=== PATIENT | female | born 1995 | race Caucasian/White ===

== ENCOUNTER 2020-12-30 16:36 | Outpatient (CLI) | payer BC, SELFPAY ==
[2020-12-30 17:02] VITALS: BP 136/63; PULSE 85; RESP 20; TEMP 36.6
[2020-12-30 17:30] VITALS: BP 136/63; PULSE 84
== END 2020-12-30 17:29 | disposition home or self-care (01) ==
LOC: ANHOBOP 16:45 → ANHOBPP 16:45
PROVIDERS: Visit Provider Obstetrics & Gynecology
DX: O42.90 Premature rupture of membranes, unspecified as to length of time between rupture and onset of labor, unspecified weeks of gestation (principal); Z3A.00 Weeks of gestation of pregnancy not specified
CPT/HCPCS: 59025; 84112; 99199

== ENCOUNTER 2021-01-06 16:24 | Outpatient (CLI) | payer BC, SELFPAY ==
--- NOTE | ~2021-01-06 | US_ITS ---
EXAMINATION: US OB limited DATE: 01/06/2021 17:36 INDICATION: Leaking fluids. Assess amniotic fluid index during second trimester of . TECHNIQUE: Real-time ultrasound of the pelvis was performed. The interpreting radiologist was not pre sent for the study. COMPARISON: None. FINDINGS: There is a single living fetus in variable presentation. The placenta is posterior and low-lying wit h caudal margin 2.5 cm from the internal cervical os. There is a 10 x 7 mm hypoechoic likely subchori onic hematoma along the inferior margin of the placenta. Normal cervical length of 3.5 cm. Anterior t o the cervix at the caudal aspect of the gestational sac is a small anechoic region from th e remainder of the amniotic fluid by a thin linear echogenic membrane. heart rate is 153 beats p er minute (bpm). The amniotic fluid index is 14.4 cm, which is normal (5th%-95%: 9.5-21.4 cm at 21 we eks estimated gestational age). IMPRESSION: 1. Single living fetus in variable presentation with heart rate of 153 bpm. 2. Normal amniotic fluid index of 14.4 cm. 3. Small subchorionic hematoma along the inferior margin of the posterior placenta. Additional small anechoic region separate from the remainder the amniotic fluid collection by a thin linear echogenic membrane could represent additional subchorionic hematoma with differential also including chorioamni onic separation which would be atypical at 21 weeks estimated gestational age, amniotic band or poten tially an intrauterine membrane in the appropriate clinical setting. Correlate with any prior outside imaging. Reviewed, dictated and finalized at location A. R ENGINEER IMPRESSION: 1. Single living fetus in variable presentation with heart rate of 153 b pm. 2. Normal amniotic fluid index of 14.4 cm. 3. Small subchorionic hematoma along the inferior margin of the posterior place nta. Additional small anechoic region separate from the remainder the amniotic fluid collection by a thin linear echogenic membrane could represent additional subchorionic hematoma with differential also including chorioamnionic separati on which would be atypical at 21 weeks estimated gestational age, amniotic band or potentially an intrauterine membrane in the appropriate clinical setting. C orrelate with any prior outside imaging.
[2021-01-06 16:55] VITALS: BP 120/60; PULSE 80
[2021-01-06 16:58] VITALS: BP 120/60; PULSE 80
[2021-01-06 17:00] VITALS: BP 120/60; PULSE 81; PULSE 97; RESP 20; TEMP 37.4
--- NOTE | 2021-01-06 18:03 | PC.NURSE ---
Dr. Simeon informed pt c/o leakage of fluid for the last week. Pt was evaluated here prior and ROM plus was negative. ROM plus negative again tonight, MEHRDAD 14.4 cm. Read the remainder of the U/S report to . FHT's 135 with 10 beat accels at 21 6/7 wks. OK to discharge to home. Instruct pt in pelvic rest and to call the office tomorrow. MD will review films from U/S and determine if pt needs to see MFM. Pt informed and verbalizes understanding.
== END 2021-01-06 18:11 | disposition home or self-care (01) ==
LOC: ANHOBOP 16:28 → ANHOBPP 16:28
PROVIDERS: Visit Provider Advanced Practice Midwife
DX: O42.90 Premature rupture of membranes, unspecified as to length of time between rupture and onset of labor, unspecified weeks of gestation (principal); Z3A.00 Weeks of gestation of pregnancy not specified
CPT/HCPCS: 76815; 84112; 99199

== ENCOUNTER 2021-03-12 08:26 | Observation (INO) | payer SELFPAY ==
[2021-03-12 08:48] VITALS: BP 122/63; PULSE 98
[2021-03-12 08:50] VITALS: BMI 37.6
[2021-03-12 09:00] VITALS: BP 109/64; PULSE 91
--- NOTE | 2021-03-12 09:01 | OBADM ---
This patient, Yamila Vickers, admitted to the OB room OB Post 116 for observation. Patient/family oriented to hospital policies and general routines including ID bracelet, bed and alarms, visiting hours, pain management, procedures, bathroom and other care routines, personal items, smoking policy, room service/diet, and visiting hours. Patient/Family are encouraged to report perceived risks to care and to ask questions if they do not understand what they are told or what they should do.
[2021-03-12 10:00] VITALS: BP 117/65; PULSE 93
[2021-03-12 10:49] LABS: Add Urine Microscopic? YES; Appearance Urine Cloudy (Clear); Bilirubin Urine Negative (Negative); Blood Urine 3+ (Negative); Color Urine Yellow (Yellow); Glucose Urine UA Negative (Negative); Ketones Urine Negative (Negative); Leukocyte Esterase Ur Negative LEU/UL (Negative); Mucus Urine Few /lpf; Nitrate Urine Negative (Negative); Protein Urine 1+ mg/dL (Negative); RBC Urine >75 /hpf (0-2); Specific Grav Ur 1.016 (1.001-1.035); Squamous Epithelial Cell Urine Many /hpf (Few); Urobilinogen Urine Negative mg/dL (<2.0)
[2021-03-12 11:00] VITALS: BP 119/59; PULSE 89
--- NOTE | 2021-03-26 21:36 | PM.OBTRLD ---
OB - Triage/Final Diagnosis Visit Information Comments/Additional reasons for admission: I have assessed the risk for this patient, Yamila Vickers, and determined that she would benefit from observation care. Evaluation Laboratory results: Laboratory Tests 03/12/21 08:53 Urine Color Yellow Urine Appearance Cloudy H Urine pH 6.0 Ur Specific [place] 1.016 Urine Protein 1+ H Urine Glucose (UA) Negative Urine Ketones Negative Ur Blood (Man) 3+ H Urine Nitrate Negative Urine Bilirubin Negative Urine Urobilinogen Negative Leukocyte Esterase Rfl Negative Urine RBC >75 H Urine WBC 4-6 H Ur Squamous Epith Cells Many H Urine Mucus Few H Final Diagnosis (1) False labor: Code(s): O47.9 - False labor, unspecified Status: Acute
== END 2021-03-12 11:20 | disposition home or self-care (01) ==
PROVIDERS: Admitting Provider Obstetrics & Gynecology; Visit Provider Obstetrics & Gynecology
DX: O47.03 False labor before 37 completed weeks of gestation, third trimester (principal); Z3A.32 32 weeks gestation of pregnancy
CPT/HCPCS: 81001; G0378; G0379

== ENCOUNTER 2021-05-10 15:53 | Inpatient (IN) | payer BC, SELFPAY ==
[2021-05-10] VITALS (52 sets, daily range): BP systolic 86–138; BP diastolic 55–97; PULSE 18–135; RESP 18; TEMP 36.7–37.2; O2SAT 96–100; BMI 39.2
--- OUTSIDE RECORDS SUMMARY | 2021-05-10 16:00 | XMS_ITS | Encounter Summary ---
:1995 Author Care Team Providers Name Role Phone [facility] Primary Care Provider [phone] Reason for Visit OB visit 37w6d Assessment and Plan 1. Routine care Discussion Note: None recorded.Patient educational handouts: No information available. Plan of Care Reminders Provider Appointments None ? ? recorded. Lab None ? ? recorded. Referral None ? ? recorded. Procedures None ? ? recorded. Surgeries None ? ? recorded. Imaging None ? ? recorded. Medications Name Start Date ? ? escitalopram 5 mg tablet ? TAKE 1 TABLET BY MOUTH EVERY DAY ? Medications Administered None recorded. Vitals Height Weight BMI Blood Pressure 5 ft 7 in 252 lbs 39.5 kg/m2 122/75 mm[Hg] Results Lab Results None recorded. Allergies Code Code System Name Reaction Severity Onset [id number] RxNorm Nickel ? ? ? Problems Name Status Onset Date Source ? 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 Vanishing Twin Syndrome Active ? ? Procedures Date Name Pe
--- OUTSIDE RECORDS SUMMARY | 2021-05-10 16:00 | XMS_ITS | Encounter Summary ---
:1995 Author Care Team Providers Name Role Phone [facility] Primary Care Provider [phone] Reason for Visit None recorded. Assessment and Plan 1. Polyhydramnios ? US, obstetric, limited Discussion Note: None recorded.Patient educational handouts: No information available. Plan of Care Reminders Provider Appointments None ? ? recorded. Lab None ? ? recorded. Referral None ? ? recorded. Procedures None ? ? recorded. Surgeries None ? ? recorded. Imaging US, [facility], Limited 04/20/2021 Medications Name Start Date ? ? escitalopram 5 mg tablet ? TAKE 1 TABLET BY MOUTH EVERY DAY ? Medications Administered None recorded. Vitals None recorded. Results Lab Results None recorded. Allergies Code Code System Name Reaction Severity Onset [id number] RxNorm Nickel ? ? ? Problems Name Status Onset Date Source ? 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 Vanishing Twin Syndrome Active ? ? Procedures Date Name Performed by ?
--- OUTSIDE RECORDS SUMMARY | 2021-05-10 16:00 | XMS_ITS | Encounter Summary ---
:1995 Author Care Team Providers Name Role Phone [facility] Primary Care Provider [phone] Reason for Visit OB visit 36w5d Assessment and Plan 1. Routine care Discussion [...] BMI Blood Pressure 5 ft 7 in 251 lbs 39.3 kg/m2 123/74 mm[Hg] Results Lab Results None recorded. Allergies Code Code System Name Reaction Severity Onset [id number] RxNorm Nickel ? ? ? Problems Name Status Onset Date Source ? 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 Vanishing Twin Syndrome Active ? ? Procedures Date Name
--- OUTSIDE RECORDS SUMMARY | 2021-05-10 16:00 | XMS_ITS ---
:1995 Author Care Team Providers Name Role Phone [facility] Primary Care Provider [phone] Allergies Code Code System Name Reaction Severity Status Onset [id number] RxNorm Nickel ? ? Active ? Medications Name Status Start Date Stop Date ? ? dextroamphetamine-amphetamine 15 mg tablet Completed ? 11/24/2020 TAKE 1 TABLET BY MOUTH EVERY NIGHT dextroamphetamine-amphetamine ER 20 mg 24hr capsule,extend relea se Completed ? 11/24/2020 TAKE 1 CAPSULE BY MOUTH ONCE DAILY IN THE MORNING escitalopram 10 mg tablet Completed ? 2020 TAKE 1 TABLET BY MOUTH EVERY DAY escitalopram 5 mg tablet Active ? Not millie ilable TAKE 1 TABLET BY MOUTH EVERY DAY nitrofurantoin monohydrate/macrocrystals 100 mg capsule Complete d ? 03/27/2021 TAKE 1 CAPSULE BY MOUTH EVERY 12 HOURS FOR 7 DAYS Active ? Not available 28 mg iron-800 mcg tablet Completed ? 07/28/2020 Zoloft 50 mg tablet Completed 10/03/2014 02/28/2018 take 1 tablet by oral route every day Problems Name Status Onset Date Source ? Screening for Malignant Neoplasm of Unknown 06/10/2011 History Cervix Specialized Medical Examination Unknown 06/10/2011 History Varicose Veins of Vulva Unknown 09/21/2011 History Depressive Disorder Unknown 09/06/2014 History Irregular Periods Unknown 09/06/2014 History Intermenstrual Bleeding - Irregular Unknown 09/06/2014 History Test Negative Unknown 09/06/2014 History Body Mass Index 25-29 - Overweight Unknown 02/28/2018 Hist
--- OUTSIDE RECORDS SUMMARY | 2021-05-10 16:00 | XMS_ITS | Encounter Summary ---
:1995 Author Care Team Providers Name Role Phone [facility] Primary Care Provider [phone] Reason for Visit OB visit Assessment and Plan 1. Routine care Discussion [...] BMI Blood Pressure 5 ft 7 in 241 lbs 37.7 kg/m2 102/67 mm[Hg] Results Lab Results None recorded. Allergies Code Code System Name Reaction Severity Onset [id number] RxNorm Nickel ? ? ? Problems Name Status Onset Date Source ? 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 Vanishing Twin Syndrome Active ? ? Procedures None recorded. Vaccine List None recorded. Social History Tob
--- OUTSIDE RECORDS SUMMARY | 2021-05-10 16:00 | XMS_ITS | Encounter Summary ---
:1995 Author Care Team Providers Name Role Phone [facility] Primary Care Provider [phone] Reason for Visit OB visit 35w5d / gbs today Assessment and Plan 1. Routine care Discussion [...] BMI Blood Pressure 5 ft 7 in 254 lbs 39.8 kg/m2 120/77 mm[Hg] Results Lab Results None recorded. Allergies Code Code System Name Reaction Severity Onset [id number] RxNorm Nickel ? ? ? Problems Name Status Onset Date Source ? 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 Vanishing Twin Syndrome Active ? ? Procedures Date Name
--- OUTSIDE RECORDS SUMMARY | 2021-05-10 16:00 | XMS_ITS | Encounter Summary ---
:1995 Author Care Team Providers Name Role Phone [facility] Primary Care Provider [phone] Reason for Visit OB visit 27W5D / Glucose today Assessment and Plan 1. Routine care [...] BMI Blood Pressure 5 ft 7 in 238 lbs 37.3 kg/m2 118/74 mm[Hg] Results Lab Results None recorded. Allergies Code Code System Name Reaction Severity Onset [id number] RxNorm Nickel ? ? ? Problems Name Status Onset Date Source ? 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 Vanishing Twin Syndrome Active ? ? Procedures None recorded. Vaccine List None r
--- OUTSIDE RECORDS SUMMARY | 2021-05-10 16:00 | XMS_ITS | Encounter Summary ---
:1995 Author Care Team Providers Name Role Phone [facility] Primary Care Provider [phone] Reason for Visit OB visit OB [id number] EDC 05/13/2021 LMP 07/20/2020 Assessment and Plan Assessment Note Patient is __39weeks . Disc ussed plan. 1. Routine care Discussion Note: None recorded.Patient [...] BMI Blood Pressure 5 ft 7 in 253 lbs 39.6 kg/m2 114/75 mm[Hg] Results Lab Results None recorded. Allergies Code Code System Name Reaction Severity Onset [id number] RxNorm Nickel ? ? ? Problems Name Status Onset Date Source ? Preg
--- OUTSIDE RECORDS SUMMARY | 2021-05-10 16:00 | XMS_ITS | Encounter Summary ---
:1995 Author Care Team Providers Name Role Phone [facility] Primary Care Provider [phone] Reason for Visit None recorded. Assessment and Plan 1. Disease of the respiratory sy stem complicating , childbirth and/or the puerperium ? US, obstetric, follow-up Discussion Note: None recorded.Patient educational handouts: No information available. Plan of Care Reminders Provider Appointments None ? ? recorded. Lab None ? ? recorded. Referral None ? ? recorded. Procedures None ? ? recorded. Surgeries None ? ? recorded. Imaging US, 04/13/2021 [facility], Follow-up Medications Name Start Date ? ? escitalopram 5 mg tablet ? TAKE 1 TABLET BY MOUTH EVERY DAY ? Medications Administered None recorded. Vitals None recorded. Results Lab Results None recorded. Allergies Code Code System Name Reaction Severity Onset [id number] RxNorm Nickel ? ? ? Problems Name Status Onset Date Source ? 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 Vanishing Twin Syndrome Active ? ? Proced
--- OUTSIDE RECORDS SUMMARY | 2021-05-10 16:00 | XMS_ITS | Encounter Summary ---
:1995 Author Care Team Providers Name Role Phone [facility] Primary Care Provider [phone] Reason for Visit OB visit 33W5D Assessment and Plan 1. Routine care Discussion [...] BMI Blood Pressure 5 ft 7 in 247 lbs 38.7 kg/m2 124/78 mm[Hg] Results Lab Results None recorded. Allergies Code Code System Name Reaction Severity Onset [id number] RxNorm Nickel ? ? ? Problems Name Status Onset Date Source ? 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 Vanishing Twin Syndrome Active ? ? Procedures Date Name
--- OUTSIDE RECORDS SUMMARY | 2021-05-10 16:00 | XMS_ITS | Encounter Summary ---
:1995 Author Care Team Providers Name Role Phone [facility] Primary Care Provider [phone] Reason for Visit None recorded. Assessment and Plan 1. Pre-existing maternal disease complicating ? US, obstetric, follow-up Discussion Note: None recorded.Patient educational handouts: No information available. Plan of Care Reminders Provider Appointments None ? ? recorded. Lab None ? ? recorded. Referral None ? ? recorded. Procedures None ? ? recorded. Surgeries None ? ? recorded. Imaging US, 03/18/2021 [facility], Follow-up Medications Name Start Date ? ? escitalopram 5 mg tablet ? TAKE 1 TABLET BY MOUTH EVERY DAY ? Medications Administered None recorded. Vitals None recorded. Results Lab Results None recorded. Allergies Code Code System Name Reaction Severity Onset [id number] RxNorm Nickel ? ? ? Problems Name Status Onset Date Source ? 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 Vanishing Twin Syndrome Active ? ? Procedures Date Name Performed by ?
--- NOTE | 2021-05-10 16:30 | LDADM ---
This patient, Yamila Vickers, was admitted to Labor/Delivery/Recovery 107 on 05/10/21 at 15:53. Plans for labor, pain management and were discussed with patient. Patient/family oriented to hospital policies and general routines including ID bracelet, bed and alarms, visiting hours, pain management, procedures, bathroom and other care routines, personal items, smoking policy, room service/diet and guest tray routines, infant security routines, and visiting hours. Patient/Family are encouraged to report perceived risks to care and to ask questions if they do not understand what they are told or what they should do. See OBIX for further documentation.
[2021-05-10] MEDS: LACTATED RINGERS 1,000 ML 125 ML IV CONT ×3 (16:57→23:18)
[2021-05-10] MEDS: AMPICILLIN 2 GM/NS 100 ML 2 GM/100 ML BAG IVPB (16:58)
[2021-05-10] MEDS: OXYTOCIN 30 UNITS/NS 500 ML 30 UNITS/500 ML BAG IV CONT (16:58)
[2021-05-10 16:59] LABS: Basophils Percent Auto 0.1 % (0.2-1.2); Eosinophils Absolute Auto 0.1 K/mm3 (0-0.3); Eosinophils Percent Auto 0.6 % (0-4.4); Hematocrit 35.6 % (37.0-47.0); Hemoglobin 11.8 g/dL (12.0-15.0); Lymphocytes Absolute Auto 1.51 K/mm3 (0.9-3.2); Mean Corpuscular HGB Conc 33.1 g/dl (32-36); Mean Corpuscular Hemoglobin 28.8 pg (26-34); Mean Corpuscular Volume 86.8 fl (80-100); Mean Platelet Volume 8.7 fl (7.4-10.4); Monocytes Absolute Auto 0.7 K/mm3 (0.1-0.6); Neutrophils Absolute Auto 7.7 K/mm3 (1.3-6.7); Neutrophils Percent Auto 76.3 % (45.5-73.1); Platelet Count Result 236 k/mm3 (150-375); Red Cell Distribution Width 13.3 % (11.5-14.5); White Blood Count 10.1 K/mm3 (4.5-10.0)
[2021-05-10] MEDS: AMPICILLIN 1 GM/NS 50 ML 1 GM/50 ML BAG IVPB (21:10)
--- NOTE | 2021-05-10 22:06 | PM.IMHP ---
H&P: HPI History of Present Illness Date/Time: 05/10/21 22:06 26 y/o @ 39w4d here for induction of labor. Chief Complaint: Induction of labor Review of Systems Review of Systems: All systems reviewed & are unremarkable except as noted in HPI and below Constitutional: Constitutional: Reports as per HPI and Reports no additional constitutional complaints Eyes: Eyes: Reports as per HPI ENT: Reports system reviewed and no additional complaints, except as documented Cardiovascular: Cardiovascular: Reports as per HPI Respiratory: Respiratory: Reports as per HPI Gastrointestinal: Gastrointestinal: Reports as per HPI Genitourinary: Genitourinary: Reports no additional female genitourinary complaints Musculoskeletal: Musculoskeletal: Reports no additional musculoskeletal complaints Integumentary/Breasts: Skin/Breast: Reports system reviewed and no additional complaints, except as docu Neurologic: Reports system reviewed and no additional complaints, except as documented Psychiatric: Psychiatric: Reports no additional psychiatric complaints Endocrine: Endocrine: Reports no additional endocrine complaints Hematologic/Lymphatic: Hematologic/Lymphatic: Reports no additional hematologic/lymphatic complaints Allergic/Immunologic: Allergic/Immunologic: Reports no additional allergic/immunologic complaints [facility] Family History Family History Father Diabetes mellitus Social History Social History Smoking status: Never smoker Substance use: never Spiritual care concerns: No Meds Home Medications and Allergies Home Medications Medication Instructions Recorded Confirmed Type Unisom (doxylamine) 1 tab-cap PO PRN PRN 12/30/20 05/10/21 History escitalopram oxalate 5 mg PO DAILY 12/30/20 05/10/21 History vit-ferrous sulfat-FA 1 tablet PO DAILY 12/30/20 05/10/21 History aspirin 81 mg PO DAILY 03/12/21 05/10/21 History Allergies Allergy/AdvReac Type Severity Reaction Status Date / Time nickel Allergy Intermediate Rash Verified 02/13/19 12:13 Vital Signs Vital Signs - 24 hr 05/10/21 17:04 05/10/21 17:07 05/10/21 17:31 Temperature 98.9 F Pulse Rate 113 H 100 Respiratory Rate Blood Pressure 125/81 119/69 05/10/21 18:01 05/10/21 18:31 05/10/21 18:59 Temperature 99 F Pulse Rate 94 96 Respiratory Rate 18 Blood Pressure 113/77 115/97 H 05/10/21 19:01 05/10/21 19:32 05/10/21 20:01 Temperature Pulse Rate 91 102 H 99 Respiratory Rate Blood Pressure 117/78 125/82 128/77 05/10/21 20:31 05/10/21 21:01 05/10/21 21:31 Temperature Pulse Rate 99 97 95 Respiratory Rate Blood Pressure 104/66 118/75 130/73 05/10/21 21:48 05/10/21 22:01 Temperature 98.2 F Pulse Rate 18 L 97 Respiratory Rate Blood Pressure 117/89 Exam Narrative: Abdomen gravid with regular contractions FHR category 1 Cervix 2-3/50/-2 AROM moderate amount of clear odorless fluid Const: General: cooperative and healthy appearing Orientation/consciousness: oriented to person, oriented to place, oriented to time and patient oriented x3 Limitations: no limitations HENMT: Head: normal to inspection Ears: hearing grossly normal bilaterally General nose exam: Normal external nose present Face and sinus: normal facial exam Mouth: Yes Normal oral and palatal mucosa present Teeth and gingiva: dentition normal Throat: posterior oropharynx normal Eyes: General: appearance normal, both eyes and all related structures Neck: Neck: normal visual inspection Thyroid: thyroid normal Chest: Chest palpation & inspection: normal inspection of the chest Resp: Effort & Inspection: normal respiratory effort Auscultation: clear to auscultation bilaterally Cardio: Rate: regular rate Rhythm: regular rhythm GI: Inspection: normal to inspection : General: Yes bimanual renal
--- NOTE | 2021-05-10 22:16 | WPDANESEPP ---
Anes - Eval Pre Procedure Procedure: labor epidural Date/Time: 05/10/21 22:16 Surgeon: naif Pre Op Diagnosis: Induction of Labor Patient Data Age: 26 Gender: F Height: 1.7 m Weight: 113.5 kg Last Vital Signs Temp 36.8 C 05/10/21 21:48 Pulse 97 05/10/21 22:01 Resp 18 05/10/21 18:59 BP 117/89 05/10/21 22:01 Allergies Allergy/AdvReac Type Severity Reaction Status Date / Time nickel Allergy Intermediate Rash Verified 02/13/19 12:13 Home Medications Medication Instructions Recorded Confirmed Type Unisom (doxylamine) 1 tab-cap PO PRN PRN 12/30/20 05/10/21 History escitalopram oxalate 5 mg PO DAILY 12/30/20 05/10/21 History vit-ferrous sulfat-FA 1 tablet PO DAILY 12/30/20 05/10/21 History aspirin 81 mg PO DAILY 03/12/21 05/10/21 History Laboratory Tests 05/10/21 05/10/21 05/10/21 16:25 16:25 16:25 WBC 10.1 K/mm3 H K/mm3 (4.5-10.0) RBC 4.10 M/mm3 L M/mm3 (4.2-5.4) Hgb 11.8 g/dL L g/dL (12.0-15.0) Hct 35.6 % L % (37.0-47.0) MCV 86.8 fl fl (80-100) MCH 28.8 pg pg (26-34) MCHC 33.1 g/dl g/dl (32-36) RDW 13.3 % % (11.5-14.5) Plt Count 236 k/mm3 k/mm3 (150-375) MPV 8.7 fl fl (7.4-10.4) Immature Gran % (Auto) 1.0 % H % (0-0.5) Neut % (Auto) 76.3 % H % (45.5-73.1) Lymph % (Auto) 15.0 % L % (18.3-44.2) [place] % (Auto) 7.0 % % (2.6-8.5) Eos % (Auto) 0.6 % % (0-4.4) Baso % (Auto) 0.1 % L % (0.2-1.2) Lymph # (Auto) 1.51 K/mm3 K/mm3 (0.9-3.2) [place] # (Auto) 0.7 K/mm3 H K/mm3 (0.1-0.6) Eos # (Auto) 0.1 K/mm3 K/mm3 (0-0.3) Baso # (Auto) 0.0 K/mm3 K/mm3 (0.0-0.1) Abs Immat Gran (auto) 0.10 K/mm3 H K/mm3 (0.00-0.031) Absolute Neuts (auto) 7.7 K/mm3 H K/mm3 (1.3-6.7) Absolute Nucleated RBC 0.0 K/mm3 K/mm3 (0.0-0.012) Nucleated RBC % 0.0 % % (0.0-0.2) RPR Pending Blood Type O Positive Antibody Screen Negative Patient hx anesthesia problems: none Family hx anesthesia problems: none Results Review: All pre-operative results and documents have been reviewed as part of the pre-operative evaluation. [facility] Family History Family History Father Diabetes mellitus Social History Social History Smoking status: Never smoker Substance use: never Spiritual care concerns: No Exam Day of Procedure 05/10/21 22:16
[2021-05-11] VITALS (50 sets, daily range): BP systolic 78–143; BP diastolic 46–109; PULSE 82–173; RESP 18; TEMP 36.1–37; O2SAT 97–100
[2021-05-11] MEDS: ONDANSETRON INJ 4 MG/2 ML VIAL IV PUSH ×2 (00:26→06:15)
[2021-05-11] MEDS: AMPICILLIN 1 GM/NS 50 ML 1 GM/50 ML BAG IVPB ×2 (00:29→04:18)
[2021-05-11] MEDS: FAMOTIDINE 20 MG/2 ML VIAL IV PUSH (02:30)
--- NOTE | 2021-05-11 06:01 | PM.OBPRVD ---
OB - Delivery Note Procedure Delivery date: 05/11/21 Induction method: Per Pitocin Protocol Delivery monitor: External FHT and External Uterine Route of delivery: Episiotomy description: None Laceration Description: Perineal - 1st Degree Quantitative Blood Loss (ml): 207 Anesthesia type: Epidural Narrative: Mother and baby in stable condition. Cord gasses collected and handed off to staff. Baby Date of : 05/11/21 Time of : 05:27 Weeks of gestation at delivery: 39 Weight (pounds): 8 Weight (ounces): 13 presentation: vertex position: Right Occiput Anterior Placenta delivery description: Spontaneous score one minute: 9 score five minutes: 9
[2021-05-11] MEDS: OXYTOCIN 30 UNITS/NS 500 ML 30 UNITS/500 ML BAG 125 UNITS IV CONT (06:15)
[2021-05-11] MEDS: IBUPROFEN 600 MG TABLET PO ×3 (06:50→21:41)
[2021-05-11] MEDS: BENZOCAINE 20% AER SPR (*SP) 56 GM CAN 1 SPRAY TOPICAL (07:52)
[2021-05-11] MEDS: WITCH HAZEL 40 PADS 1 PAD TOPICAL (07:52)
[2021-05-11] MEDS: HYDROcodone/acetaminophen (*CRX) 5-325 MG TABLET 1 TAB PO (07:52)
--- NOTE | 2021-05-11 08:40 | PC.NURSE ---
Patient transferred to post room #[id number] via wheelchair. Support person present. Oriented to unit, room, information board, rooming in, admission packet and security measures. Patient verbalizes understanding.
--- NOTE | 2021-05-11 11:46 | PC.NURSE ---
[id number] Introductions made and consulted with patient to assess needs related to . Mother led conversation with her experience with feeding baby so far. Mother works well with her infant. Reviewed good handwashing when working with , breast, nipples and how to protect the nipples with a deep latch. Encouraged understanding the benefits of skin to skin, responding to feeding cues, frequencies of feeding 8-12 times in 24 hours (approximately 2-3 hours), duration of feedings, milk production, intake/output feeding sheet and signs of adequate intake. Discussed stimulating with skin to skin, hand expressing colostrum, touch and talking to infant to encourage eating at the breast. Reviewed positioning and alignment, supporting breast, off-centered (asymmetrical latch) and leading with the chin with big open wide gape. latched optimally to the left breast in football position. Education given to mother of how to visualize suck/swallow ratios and drinking at the breast. Infant was able to maintain latch without discomfort to mother. Nipple care, comfort and healing with warm, wet washcloth to rinse breast and leave to air-dry and have clean hands when touching the nipple/breast. Mother denies any discomfort after . The center of the nipple is blanched after detached without misshaping. Discussed further assessment after the next feeding. Resources used to facilitate learning were used from the visual handout/ tool/mom and baby guide. Mother voiced understanding responding to feeding cues, may need to stimulating infant approximately 2-3 hours from the start of the last feeding, calling for assistance if the infant does not latch or there discomfort . Reported to primary RN.
--- NOTE | 2021-05-11 11:50 | PC.NURSE ---
[id number] Infant latched optimally to the right breast in football position. Education given to mother of how to visualize suck/swallow ratios and drinking at the breast. Infant was able to maintain latch without discomfort to mother. Nipple care reviewed with latch and positioning. Resources used to facilitate learning were used from the mom and baby guide. Mother voiced understanding responding to feeding cues, may need to stimulating approximately 2-3 hours from the start of the last feeding, calling for assistance if the does not latch or there discomfort . Reported to primary RN.
[2021-05-11] MEDS: MULTIVIT/MIN/PREN/FOL AC/IRON TABLET 1 TAB PO (12:19)
--- NOTE | 2021-05-11 14:26 | PC.NURSE ---
1235 - Infant is sleepy and reluctant to breastfeed. Mother is holding infant skin to skin. RN will check back. 1310 -Infant latched effectively with appropriated suck/swallow ratios, audible swallowing heard and able to maintain latch with no discomfort to mother to the right breast in football position. Reported to primary RN.
--- NOTE | 2021-05-11 15:43 | PC.NURSE ---
[id number] Consulted with patient to assess needs related to . Mother is working well with infant but is having difficulty getting infant awake for . Encouraged undressing the for the benefits of skin to skin, responding to feeding cues, frequencies of feeding 8-12 times in 24 hours (approximately 2-3 hours), duration of feedings, milk production, intake/output feeding sheet and signs of adequate intake. Discussed stimulating infant with skin to skin, hand expressing colostrum, touch and talking to to encourage eating at the breast. Reviewed positioning and alignment, supporting breast, off-centered (asymmetrical latch) and leading with the chin with big open wide gape. Infant latched optimally to the right breast in football position. Education given to mother of how to visualize suck/swallow ratios and drinking at the breast. was able to maintain latch without discomfort to mother. Nipple care reviewed with optimal latching. Infant detached after 12 min and nipple wasn't misshaped. Mother placed infant skin to skin. Mother voiced understanding responding to feeding cues, may need to stimulating infant approximately 2-3 hours from the start of the last feeding, calling for assistance if the infant does not latch or there discomfort . Reported to primary RN.
[2021-05-11] MEDS: ACETAMINOPHEN 325 MG TABLET 650 MG PO (17:03)
[2021-05-11 17:58] LABS: Rapid Plasma Reagin Non-Reactive (NonReactive)
[2021-05-12] MEDS: ACETAMINOPHEN 325 MG TABLET 650 MG PO ×2 (00:01→08:52)
[2021-05-12 00:08] VITALS: BP 135/70; PULSE 94; RESP 18; TEMP 35.9; O2SAT 99
[2021-05-12] MEDS: IBUPROFEN 600 MG TABLET PO (04:36)
[2021-05-12 04:48] VITALS: BP 144/80; PULSE 97; RESP 18; TEMP 36.2; O2SAT 98
[2021-05-12 05:24] LABS: Hematocrit 33.5 % (37.0-47.0); Hemoglobin 11.2 g/dL (12.0-15.0)
--- NOTE | 2021-05-12 07:14 | PM.OBPNVD ---
OB - PN: Subj Subjective Date/time seen: 05/12/21 07:14 Patient comments: no complaints and pain well controlled baby status: doing well [place] feeding status: breast and bottle feeding OB - PN: Obj Data Labs CBC & Chem 7: 05/12/21 04:37 Labs: Laboratory Results - last 24 hr 05/10/21 05/12/21 16:25 04:37 Hgb 11.2 L Hct 33.5 L RPR Non-reactive OB - PN A/P Assessment and Plan (1) , delivered: Code(s): O80 - Encounter for full-term uncomplicated delivery Status: Acute Plan day: 1 Plan: routine care Time Spent With Patient Time: Total time spent is greater than 50% in coordination of care (as documented) at patient's floor/unit and/or counseling patient: Time with patient: less than 15 minutes Exam Narrative: NAD abdomen soft, nontender, fundus firm below the umbilicus Extremities nontender, 1+ edema
--- NOTE | 2021-05-12 07:16 | PM.OBDSVD ---
DS: Admitting Diagnosis Discharge Date 05/12/21 Admitting Diagnosis term IOL DS: Discharge Diagnosis Discharge Diagnosis (1) , delivered: Code(s): O80 - Encounter for full-term uncomplicated delivery Status: Acute OB - DS: Summary Hospital Course Hospital Course: Yamila had an uncomplicated induction of labor and course. She was DCed home on PPD1 in stable condition. OB Procedures : Ultrasound OB Procedures Intrapartum: Spontaneous Vag Delivery OB Procedures: : None Peripartum Data Infant Delivery Method: Natural Vaginal complications: none Status at Discharge Functional status at discharge: independent ambulation Time Spent with Patient Time attestation: Total time spent providing and/or coordinating discharge services: DS: Data Data Completed and Pending Pending studies at discharge: Pending at discharge 05/11/21 06:05 Surgical [PTH] Routine Labs on day of discharge: Labs from last 24 hours 05/12/21 05/10/21 04:37 16:25 Hgb 11.2 L Hct 33.5 L RPR Non-reactive Discharge Plan Discharge Attending physician on discharge: Merlyn Simeon Discharging Clinician: Merlyn Simeon Anticipated Discharge Date/Time: 05/12/21 07:15 Patient Disposition: Home, Self-Care Activity: pelvic rest Diet: regular Patient Instructions: Antibiotic Form Stand Alone Forms: General Discharge Information Follow-up/Referrals: Emma Avitia MD [Physician] - 4 Weeks Discharge Medications: Continued vit-ferrous sulfat-FA 27 mg iron- 0.8 mg Tablet 1 tablet PO DAILY RF: 0 escitalopram oxalate 10 mg tablet 5 mg PO DAILY RF: 0 Discontinued Unisom (doxylamine) 1 tab-cap PO PRN PRN (Reason: Sleep) RF: 0 aspirin 81 mg Tablet 81 mg PO DAILY RF: 0 Date of admission: 05/10/21 15:53 Primary Care Provider: Kina Bentley Admitting Provider: Emma Avitia Attending physician on admission: Emma Avitia Condition: Stable
[2021-05-12 07:50] VITALS: BP 115/58; PULSE 91; RESP 16; TEMP 36.3; O2SAT 98
[2021-05-12] MEDS: DOCUSATE SODIUM 100 MG CAPSULE PO (08:52)
[2021-05-12] MEDS: MULTIVIT/MIN/PREN/FOL AC/IRON TABLET 1 TAB PO (08:52)
--- NOTE | 2021-05-12 12:39 | PC.NURSE ---
[id number] Mother led the conversation with regards to her experience feeding her baby. Reminded parents to use good handwashing to prevent infection. Infant has had appropriate feedings in the past 24 hours and meets the outcomes for weight, output and jaundice. Mother states she feels confident to continue effectively her at home and what led to the panic bottle feeding last night. Reviewed production of human milk, transition of milk, signs of adequate intake and engorgement prevention/relief and when to call the care provider using the mom and baby guide. Reviewed medications mother is taking with information provided by [facility], community resources and outpatient services as listed in the mom and baby guide/[facility] website. Reinforced watching for feeding cues with responsive feeding and how to stimulate infant to initiate feeding three hours from the start of the last feeding. Mother voiced understanding of information shared. Reported to primary RN.
[2021-05-13 08:44] VITALS: BP 114/64; PULSE 94; RESP 20; TEMP 36.8; O2SAT 99
== END 2021-05-12 10:20 | disposition home or self-care (01) | DRG 807 ==
LOC: ANHOB2 05-12 09:03 → ANHLDR 05-13 09:58 → ANHOB2 05-13 09:58
PROVIDERS: Admitting Provider Obstetrics & Gynecology; PCP Advanced Practice Midwife; Visit Provider Obstetrics & Gynecology
DX: O99.824 Streptococcus B carrier state complicating childbirth (principal); Z37.0 Single live birth; Z3A.39 39 weeks gestation of pregnancy; O70.0 First degree perineal laceration during delivery
CPT/HCPCS: 36415; 85014; 85018; 85025; 86592; 86850; 86900; 86901; 88307; A9270; J0290; J2405; J2590; J2795; J7120

== ENCOUNTER 2023-12-23 08:40 | Outpatient (CLI) | payer BC, SELFPAY ==
[2023-12-23 09:45] LABS: Beta HCG Quantitative 45.99 mIU/ML
== END 2023-12-23 08:41 | disposition home or self-care (01) ==
PROVIDERS: PCP Nurse Practitioner Family; Visit Provider Advanced Practice Midwife
DX: N91.2 Amenorrhea, unspecified (principal)
CPT/HCPCS: 36415; 84702

== ENCOUNTER 2024-01-04 15:46 | Outpatient (CLI) | payer BC, SELFPAY ==
--- NOTE | ~2024-01-04 | US_ITS ---
EXAMINATION: US OB <=14 wk fetus w TV DATE: 01/04/2024 15:07 INDICATION: Spotting. . Threatened . TECHNIQUE: Real-time transabdominal and transvaginal pelvic ultrasound was performed. COMPARISON: None. FINDINGS: TRANSABDOMINAL ULTRASOUND: The uterus measures 10.9 x 5.0 x 5.8 cm. TRANSVAGINAL ULTRASOUND: There is a 3 mm cyst in the endometrial complex with intradecidual sign. No yolk sac or pole is visible. The ovaries are not visualized. There is no free fluid in the pelv is. IMPRESSION: 1. 3 mm cyst in the endometrial complex that may be a gestational sac. Spontaneous and ecto pic are not excluded. Serial beta-hCGs are recommended. Reviewed, dictated and finalized at location A. [facility]OR IMPRESSION: 1. 3 mm cyst in the endometrial complex that may be a gestational sac. Spontan eous and ectopic are not excluded. Serial beta-hCGs are astrid mmended.
[2024-01-04 16:55] LABS: Beta HCG Quantitative 235.74 mIU/ML
== END 2024-01-04 15:47 | disposition home or self-care (01) ==
LOC: ANHIMG 15:47
PROVIDERS: PCP Nurse Practitioner Family; Visit Provider Advanced Practice Midwife
DX: O20.0 Threatened abortion (principal); Z3A.00 Weeks of gestation of pregnancy not specified
CPT/HCPCS: 36415; 76801; 76817; 84702

== ENCOUNTER 2024-05-10 15:27 | Outpatient (CLI) | payer BC, SELFPAY ==
--- NOTE | ~2024-05-10 | US_ITS ---
US pelvic complete w TV Ordering provider: INGRID Obrien History: . R10.31 - Right lower quadrant pain . Comparison: None. Technique: Transabdominal and endovaginal ultrasound of the pelvis (Doppler ultrasound interrogation techniques used as needed for this exam.) FINDINGS: CERVIX: Nabothian cyst measuring 0.4 x 0.3 x 0.4 cm. UTERUS: Measures 9.8x 4.3x 5 cm in length which is within normal limits and is anteverted. Hypoechoi c area on the right side measuring 1.1 x 1 x 1.2 cm most likely fibroid. ENDOMETRIUM: Normal in thickness measuring 9.3 mm. No endometrial masses, cysts or fluid. CUL DE SAC: No free fluid. RIGHT OVARY: Not visualized. LEFT OVARY: Normal in size measuring 2.5x 2.1x 3.1 Normal echotexture. Doppler vascular flow present. Simple cyst is seen measuring 1.8 x 1.1 x 1.9 cm. ADNEXA: Normal. No mass. IMPRESSION: Fibroid uterus, simple left ovarian cyst, nabothian cysts in the cervix. Otherwise, normal pelvic ult rasound. Reviewed, dictated and finalized at location A. IMPRESSION: Fibroid uterus, simple left ovarian cyst, nabothian cysts in the cervix. Otherw ise, normal pelvic ultrasound.
--- OUTSIDE RECORDS SUMMARY | 2024-05-10 15:42 | XMS_ITS | Clinical Summary ---
Author Organization [facility] Address [address] [place] [address] Care Team Providers Care Centrifugal Supervisor Name Role Phone Tang Mariscal MD Primary Care Provider [phone] Allergies No known active allergies Medications Doxylamine Succinate, Sleep, (UNISOM OR) Active amphetamine-dextr oamphetamine XR (ADDERALL XR) 20 MG 24 hr capsule 30 mg. 07/07/2022 Ac tive CLOTRIMAZOLE EX Acti ve Social History Tobacco Use Types Packs/Day Years Used Date Smoking Tobacco: Former Cigarettes Smokeless Tobacco: Never Tobacco Cessation:Counseling Given: Not Answered Alcohol Use Standard Drinks/Week Comments Never 0 (1 standard drink = 0.6 oz pur e alcohol) Comments No Sex and Gender Information Value Date Recorded Sex Assigned at Not on file Legal Sex Female 6:42 PM CDT Gender Identity Not on file Sexual Orientation Not on file Last Filed Vital Signs Vital Sign Reading Time Taken Comments Blood Pressure 133/72 08/24/2022 7:00 PM CDT Pulse 88 08/24/2022 7:00 PM CDT Temperature 37.1 C (98.7 F) 08/24/2022 7:00 PM CDT Respiratory Rate 19 08/24/2022 7:00 PM CDT Oxygen Saturation 96% 08/24/2022 7:00 PM CDT Inhaled Oxygen Concentration - - Weight 99.8 kg (220 lb) 08/24/2022 1:24 PM CDT Height 170.2 cm (5' 7 ) 08/24/2022 1:24 PM CDT Body Mass Index 34.46 08/24/2022 1:24 PM CDT Plan of Treatment Health Maintenance Due Date Last Done Comments Annual Physical 04/27/1998 Hepatitis C 04/27/2013 DTaP, Tdap and Td Vaccines ( 1 - Tdap) 04/27/2014 Hepatitis B Vaccines (1 of 3 - 19+ 3-dose series) 04/27/2014 COVID-19 Vaccine ( - 2023-2 5 season) 2023 Influenza Adult (#1) 2023 Cervical Cancer Screening Pa p Smear (Age 21 to 29) Every 3 Years 06/30/2024 06/30/2021 Cervical Cancer Screening 06/30/2024 HPV Vaccines Aged Out No longer eligi ble based on patient's age to complete this topic Meningococcal B Vaccine Aged Out No l onger eligible based on patient's age to complete this topic Meningococcal Vaccine Aged Out No sayda larisa eligible based on patient's age to complete this topic Pneumococcal Vaccine: Pediat rics (0 to 5 Years) and At-Risk Patients (6 to 64 Years) Aged Out No longer eligi ble based on patient's age to complete this topic RSV Immunizations Under 20 Months Aged Out No longer eligible based on patient's age to complete this topic Insurance Care Teams Centrifugal Supervisor Relationship Specialty Start Date End Date Tang Mariscal MD [address] [place] [id number] PCP - General FAMILY PRACTICE 08/24/22
--- OUTSIDE RECORDS SUMMARY | 2024-05-10 15:42 | XMS_ITS | Data Portability ---
Author Organization [facility] Address [address] [place] [address] Care Team Providers Care Cereal Popper Name Role Phone [facility] Primary Care Provider Assessment No assessment recorded. Plan of Treatment Reminders Order Date Submit Date Provider Last Modified By Organization Details Last Modified Time Details Appointments None recorded. Lab test, urine 2023 024 [email or web address] 1 [facility] [address], [address], [place], [address], 4 10:29:43 beta-HCG, quantitativ e, serum or plasma 2023 024 [facility] (Lab), [address] [facility], [place], [address], 4 03:44:[address] referral 2023 024 [email or web address] Mavis Ahumada MD, [address] [place], [address], 4 10:55:41 Procedures None recorded. Surgeries None recorded. Imaging None recorded. Medication Orders nystatin 100,000 unit/gram topical ointment 2023 024 [email or web address] [facility] #[id number], [address], [place], [id number], 4 11:09:32 triamcinolo ne acetonide 0.1 % topical ointment 2023 024 [email or web address] [id number], [address], [place], [id number], 4 11:09:37 clobetasol 0.05 % topical ointment [address] [id number], [address], [place], [id number], 4 10:22:55 Patient TargetsNo targets recorded. Patient InstructionsNo instructions recorded. Reason for Referral Slot Floorman Referral for P ruritic rash Referring Physician: Florecita Owens, MEDICAL GENETICIST, Encounter Date: 07/26/2023 Results Created Date Observation Date Name Description Value Unit Range Abnormal Flag Note LastModifiedBy Organization Detail LastModifiedTime 07/08/19 24 07/08/2023 SURGI VICKY PATHO LOGY surgical pathology SEE RESULT S BELOW CASE REPOR T: Surgi vicky Patho logy Repor t Case: [id number] Autho brijesh worthington Provi celina: Eduin Yu Colle cted: 07/07 1529 CASTING CHIPPER Order ing Locat ion: [place] [facility] Recei marek: 07/08 0300 Patho logis t: Jorge Alberto Hatfield MD Speci men: Peria nal, Peria nal pigme nted skin lesio n ----- ----- ----- ----- ----- ----- ----- ----- ----- ----- ----- ----- ----- ----- ----- ----- ----- ---- FINAL DIAGN OSIS: Skin, peria nal, biops y: -Charles gn skin with mild hyper kerat osis and acant hosis . -No evide nce of dyspl octavia or neopl asm. -PAS- D stain is negat mark for funga l organ isms. -Mult iple addit ional level s exami chuy. Elect mayco tan d by Jorge Alberto Hatfield MD on 2023 at 11:55 AM ----- ----- ----- ----- ----- ----- ----- ----- ----- ----- ----- ----- ----- ----- ----- ----- ----- ---- CLINI VICKY INFOR MATIO N: Pigme nted skin lesio n MICRO SCOPI C DESCR IPTIO N: A micro scopi c exami natio n was perfo rmed. GROSS DESCR IPTIO N: A. Peria nal. The speci men is label ed with the joee nt's name, jimmy lindsay cs and anal BX . Recei marek in forma anita is a punch of white skin measu ring 0.[address] and is excis ed to a depth of 0.2 cm. The braxton n is inked black and the speci men is submi tted all in casse ttes A1. Gross ed by Nigel Lewis on Not Available [facility] (Lab) [address], [place], [address], 07/11/2023 12:59:52 07/26/19 24 07/26/2023 CULTU RE: AEROB IC/AN AEROB IC culture: aerobic/anae robic CANCEL LU Castro ered Not Available [facility] (Lab) [address], [place], [address], 07/27/2023 06:06:01 07/26/19 24 07/26/2023 CT/GC AND TRICH OMONA S VAGIN MASON (RRNA ), SWAB chlamydia trachomatis, PCR Negati ve negati ve Not Available [facility] (Lab) [address], [place], [address], 07/30/2023 16:44:40 07/26/19 24 07/26/2023 CT/GC AND TRICH OMONA S VAGIN MASON (RRNA ), SWAB neisseria gonorrhoeae, PCR Negati ve negati ve Not Available [facility] (Lab) [address] [place], [address], 07/30/2023 16:44:40 07/26/19 24 07/26/2023 CT/GC AND TRICH OMONA S VAGIN MASON (RRNA ), SWAB trichomonas vaginalis ribosomal RNA (rrna) Negati ve negati ve Not Available [facility] (Lab) [address] [facility], [place], [address], 07/30/2023 16:44:40 07/26/19 24 07/26/2023 CULTU RE: GENIT AL result report SEE RESULT S BELOW Test: Cultu re: Genit al Speci men Sourc e: Vagin a Speci men Type: Swab Speci men Date: 024 2:41 PM Resul t Date: 024 3:41 PM Resul t Statu s: Final resul t Resul ting Lab: [facility] [address] [facility] [address] Tel: CULTU RE ----- ----- ----- --- No Neiss eria gonor rhoea e isola jaqueline Heavy Growt h Inez l Vagin al Dexter STAIN ----- ----- ----- --- Alter ed vagin al dexter , indet ermin ate for bacte rial vagin osis Not Available [facility] (Lab) [address] [facility], [place], [address], 07/30/2023 16:44:40 12/05/19 24 12/05/2023 BHCG, QUANT ITATI VE B-HCG <0.2 mIU/m L This assay was perfo rmed using [employer] Corpo ratio n reage nts and test kits. Value s obtai chuy with other assay metho ds or kits canno t be used inter [facility] e[facility] . Refer ence Range s: Non-p regna nt, preme nopau terell women : 0.0-5 .3 mIU/m L Postm enopa usal women : 0.0-7 .0 mIU/m L Inez l Pregn brit: Gesta richi l Age bHCG Conc. - mIU/m L 3 Weeks 5.8 - 71.7 4 Weeks 9.5 - 750 5 Weeks 217-7 138 6 Weeks 158 - 31,79 5 7 Weeks 3,697 - 162,5 63 8 Weeks 32,06 5 - 149,5 71 9 Weeks 63,80 3 - 151,4 10 10 Weeks 46,50 9 - 186,9 77 12 Weeks 27,83 2 - 210,6 12 14 Weeks 13,95 0 - 62,53 0 15 Weeks 12,03 9 - 70,97 1 16 Weeks 9,040 - 56,45 1 17 Weeks 8,175 - 55,86 8 18 Weeks 8,099 - 58,17 6 Not Available [facility] (Lab) [address] [facility], [place], [address], 12/06/2023 05:08:19 12/09/19 24 12/09/2023 ANTIM ALBERT JACKSON (AMH) anti-mulleri an hormone (amh) 5.42 NG/mL Femal e Refer ence Range s 20-24 years : 1.22 - 11.70 ng/mL 25-29 years : 0.89 - 9.85 ng/mL 30-34 years : 0.58 - 8.13 ng/mL 35-39 years : 0.15 - 7.49 ng/mL 40-44 years : 0.03 - 5.47 ng/mL The follo wing resul ts were obtai chuy with the Ele[employer] ys assay . Resul ts from assay s of other manuf actur es canno t be used inter [facility]. Not Available [facility] (Lab) [address] [facility], [place], [address], 12/19/2023 14:39:03 12/09/19 24 12/09/2023 DHEA SULFA TE DHEA-sulfate 85 ug/dL Femal e Range s Age(y ) Range (ug/d L) 10-15 34-28 0 15-20 65-36 8 20-25 148-4 07 25-35 99-34 0 35-45 61-33 7 45-55 35-25 6 55-65 19-20 5 65-75 9-246 > 75 12-15 4 Not Available [facility] (Lab) [address] [facility], [place], [address], 12/19/2023 14:39:03 12/09/19 24 12/09/2023 ESTRA DIOL estradiol 91.4 pg/mL This assay was perfo rmed using [employer] Corpo ratio n reage nts and test kits. Value s obtai chuy with other assay metho ds or kits canno t be used inter [facility] . Femal e Estra diol Range s: Folli cular phase 12.4- 233 pg/mL Ovula tion phase 41.0- 398 pg/mL Lutea l phase 22.3- 341 pg/mL Postm enopa usal <5-13 8 pg/mL Healt hy Pregn ant Women 1st Trime ster 154-3 243 pg/mL 2nd Trime ster 1561- 10647 pg/mL 3rd Trime ster 8525- >3000 0 pg/mL Not Available [facility] (Lab) [address] [facility], [place], [address], 12/19/2023 14:39:04 12/09/19 24 12/09/2023 PROGE STERO NE progesterone 4.41 NG/mL This assay was perfo rmed using [employer] Corpo ratio n reage nts and test kits. Value s obtai chuy with other assay metho ds or kits canno t be used inter [facility] e[facility] . Femal e Proge stero ne Range s: Folli cular phase 0.06- 0.89 ng/mL Ovula tion phase 0.12- 12.00 ng/mL Lutea l phase 1.83- 23.90 ng/mL Postm enopa usal <0.05 -0.13 ng/mL Healt hy Pregn ant Women 1st Trime ster 11.0- 44.30 2nd Trime ster 25.40 -83.3 0 3rd Trime ster 58.70 -214. 00 Not Available [facility] (Lab) [address] [facility], [place], [address], 12/19/2023 14:39:04 12/09/19 24 12/09/2023 PROLA CTIN prolactin, total 13.10 NG/mL 4.79-2 3.30 This assay was perfo rmed using [employer] Corpo ratio n reage nts and test kits. Value s obtai chuy with other assay metho ds or kits canno t be used inter [facility] . Not Available [facility] (Lab) [address] [facility], [place], [address], 12/19/2023 14:39:04 12/09/19 24 12/09/2023 LH (LUTE NIZIN G HORMO NE) LH 14.2 mIU/m L This assay was perfo rmed using [employer] Corpo ratio n reage nts and test kits. Value s obtai chuy with other assay metho ds or kits canno t be used inter [facility] . Femal es Mid-F ollic ular: 2.4-1 2.6 mIU/m L Mid-C ycle: 14.0- 95.6 mIU/m L Mid-L uteal : 1.0-1 1.4 mIU/m L Postm enopa use: 7.7-5 8.5 mIU/m L Not Available [facility] (Lab) [address] [facility], [place], [address], 12/19/2023 14:39:05 12/09/19 24 12/09/2023 FSH FSH 2.4 mIU/m L This assay was perfo rmed using [employer] Corpo ratio n reage nts and test kits. Value s obtai chuy with other assay metho ds or kits canno t be used inter [facility] . Femal es Folli cular : 3.5-1 2.5 mIU/m L Ovula tion: 4.7-2 1.5 mIU/m L Lutea l: 1.7-7 .7 mIU/m L Postm enopa use: 25.8- 134.8 mIU/m L Not Available [facility] (Lab) [address] [facility], [place], [address], 12/19/2023 14:39:05 12/09/19 24 12/09/2023 HUMAN SEX HORMO NE RJ NG GLOBU ANITA sex hormone binding globulin 40.2 nmole s/L 18.2-1 35.5 Not Available [facility] (Lab) [address] [place], [address], 12/19/2023 14:39:05 12/09/19 24 12/09/2023 TSH, REFLE X FREE T4 TSH 2.60 uIU/m L 0.30-5 .33 Not Available [facility] (Lab) [address] [place], [address], 12/19/2023 14:39:06 12/09/19 24 12/09/2023 HEMOG LOBIN A1C hemoglobin A1C 5.5 % 0-5.6 The Ameri can Diabe maryuri Assoc iatio n recom mends that a prima ry goal of thera py ramos velasquez be a HBA1C of < 7% and that physi cians darionul d reeva luate the treat ment regim en in patie nts with HBA1C value s consi stent ly > 8%. <5.7% Inez l 5.7 - 6.4% Incre ased risk for diabe maryuri >=6.5 % Diagn ostic of diabe maryuri <7.0% Goal of thera py >8.0% Actio n sugge sted Not Available [facility] (Lab) [address] [facility], [place], [address], 12/19/2023 14:39:06 12/09/19 24 12/09/2023 17-OH PROGE STERO NE 17-hydroxypr ogesterone, lc/MS/MS 123 NG/dL Adult Femal e Refer ence Range s for 17-Hy droxy proge stero ne: Pre-M enopa usal Mid Folli cular : 23-10 2 ng/dL Pre-M enopa usal Surge : 67-34 9 ng/dL Pre-M enopa usal Mid Lutea l: 139-4 31 ng/dL Postm enopa usal Phase : < or = 45 ng/dL Pregn brit: First Trime ster: 78-45 7 ng/dL Secon d Trime ster: 90-35 7 ng/dL Third Trime ster: 144-5 78 ng/dL This test was devel oped and its sha tical perfo rmanc e castro cteri stics have been deter mined by [employer]. It has not been clear ed or appro marek by FDA. This assay has been valid ated pursu ant to the CLIA regul ation s and is used for clini vicky purpo ses. Perfo rming Organ izati on Maryamr hiren n: Site ID: EZ Name: [employer] [facility]/Talon germain [facility] , Addre ss: [id number] [address] [facility] [place] [address] Direc tor: Mirna spencer MD,Ph D,TAYLER Not Available [facility] (Lab) [address] [facility], [place], [address], 12/19/2023 14:39:06 12/09/19 24 12/09/2023 TESTO STERO NE, FREE( DIALY SIS) AND TOTAL (LC/M S/MS) testosterone , total 56 NG/dL 2-45 high For addit ional infonora flores e refer to http: //[facility]isa valentine.que stdia gnost ics.c om/fa q/ Total Testo stero neLCM SMSFA Q165 (This link is being provi ded for infor matroman nal/ educa richi l purpo ses only. ) This test was devel oped and its sha tical perfo rmanc e castro cteri stics have been deter mined by [facility] PARUL Levine. It has not been clear ed or appro marek by the U.S. Food and Drug Admin istra tion. This assay has been valid ated pursu ant to the CLIA regul ation s and is used for clini vicky purpo ses. Not Available [facility] (Lab) [address] , [place], [address], 12/19/2023 14:39:06 12/09/19 24 12/09/2023 TESTO STERO NE, FREE( DIALY SIS) AND TOTAL (LC/M S/MS) testosterone , free 5.6 pg/mL 0.1-6. 4 This test was devel oped and its sha tical perfo rmanc e castro cteri stics have been deter mined by [employer] [facility] Aneudy huerta [facility] you[place]ifLog[place], [place]. It has not been clear ed or appro marek by the U.S. Food and Drug Admin istra tion. This assay has been valid ated pursu ant to the CLIA regul ation s and is used for clini vicky purpo ses. Perfo rming Organ izati on Infor sonyaio n: Site ID: AMD Name: [facility] ostgorge troncoso Addre ss: [id number] [employer] [place], [place] Direc tor: Rashawn Gallardo MD PhD Not Available [facility] (Lab) [address] , [place], [address], 12/19/2023 14:39:06 12/09/19 24 12/09/2023 CORTI KATE, FREE AND TOTAL , LC/MS /MS cortisol, total 6.0 mcg/d L Adult Refer ence Range s for Corti kate, Total : Males and Femal es 8-10 AM 4.6-2 0.6 mcg/d L 4-6 PM 1.8-1 3.6 mcg/d L Corti kate Respo nse to ACTH Adult Males and Femal es Peak >20.0 mcg/d L Peak >16.0 mcg/d L after IM injec tion Not Available [facility] (Lab) [address] , [place], [address], 12/19/2023 14:39:07 12/09/19 24 12/09/2023 CORTI KATE, FREE AND TOTAL , LC/MS /MS cortisol, free 0.28 mcg/d L Adult Refer ence Range s for Corti kate, MS, Free: 8:00 - 10:00 AM 0.07- 0.93 mcg/d L 4:00 - 6:00 PM 0.04- 0.45 mcg/d L 10:00 - 11:00 PM 0.04- 0.35 mcg/d L This test was devel oped and its sha tical perfo rmanc e castro cteri stics have been deter mined by [employer]. It has not been clear ed or appro marek by FDA. This assay has been valid ated pursu ant to the CLIA regul ation s and is used for clini vicky purpo ses. Perfo rming Organ izati on Infor matio n: Site ID: EZ Name: [facility] [facility]/Talon [facility] , Addre ss: [id number] [address] [facility] [place] [address] Direc tor: Mrina spencer MD,Ph D,TAYLER Not Available [facility] (Lab) [address] [facility], [place], [address], 12/19/2023 14:39:07 12/21/19 24 12/21/2023 BHCG, QUANT ITATI VE B-HCG 23.5 mIU/m L This assay was perfo rmed using [employer] Corpo ratio n reage nts and test kits. Value s obtai chuy with other assay metho ds or kits canno t be used inter [facility] . Refer ence Range s: Non-p regna nt, preme nopau terell women : 0.0-5 .3 mIU/m L Postm enopa usal women : 0.0-7 .0 mIU/m L Inez l Pregn brit: Gesta richi l Age bHCG Conc. - mIU/m L 3 Weeks 5.8 - 71.7 4 Weeks 9.5 - 750 5 Weeks 217-7 138 6 Weeks 158 - 31,79 5 7 Weeks 3,697 - 162,5 63 8 Weeks 32,06 5 - 149,5 71 9 Weeks 63,80 3 - 151,4 10 10 Weeks 46,50 9 - 186,9 77 12 Weeks 27,83 2 - 210,6 12 14 Weeks 13,95 0 - 62,53 0 15 Weeks 12,03 9 - 70,97 1 16 Weeks 9,040 - 56,45 1 17 Weeks 8,175 - 55,86 8 18 Weeks 8,099 - 58,17 6 Not Available [facility] (Lab) [address], [place], [address], 12/22/2023 03:44:51 12/21/19 24 12/21/2023 pregn brit test, urine HCG positi ve Not Available [place] [address], [place], [address], 12/21/2023 10:29:20 01/06/20 24 01/06/2024 BHCG, QUANT ITATI VE B-HCG 73.0 mIU/m L This assay was perfo rmed using [employer] Corpo ratio n reage nts and test kits. Value s obtai chuy with other assay metho ds or kits canno t be used inter [facility] eably . Refer ence Range s: Non-p regna nt, preme nopau terell women : 0.0-5 .3 mIU/m L Postm enopa usal women : 0.0-7 .0 mIU/m L Inez l Pregn brit: Gesta richi l Age bHCG Conc. - mIU/m L 3 Weeks 5.8 - 71.7 4 Weeks 9.5 - 750 5 Weeks 217-7 138 6 Weeks 158 - 31,79 5 7 Weeks 3,697 - 162,5 63 8 Weeks 32,06 5 - 149,5 71 9 Weeks 63,80 3 - 151,4 10 10 Weeks 46,50 9 - 186,9 77 12 Weeks 27,83 2 - 210,6 12 14 Weeks 13,95 0 - 62,53 0 15 Weeks 12,03 9 - 70,97 1 16 Weeks 9,040 - 56,45 1 17 Weeks 8,175 - 55,86 8 18 Weeks 8,099 - 58,17 6 Not Available [facility] (Lab) [address], [place], [address], 01/07/2024 05:03:21 01/13/20 24 01/13/2024 BHCG, QUANT ITATI VE B-HCG 2.2 mIU/m L This assay was perfo rmed using [employer] Corpo ratio n reage nts and test kits. Value s obtai chuy with other assay metho ds or kits canno t be used inter [facility] eably . Refer ence Range s: Non-p regna nt, preme nopau terell women : 0.0-5 .3 mIU/m L Postm enopa usal women : 0.0-7 .0 mIU/m L Inez l Pregn brit: Gesta richi l Age bHCG Conc. - mIU/m L 3 Weeks 5.8 - 71.7 4 Weeks 9.5 - 750 5 Weeks 217-7 138 6 Weeks 158 - 31,79 5 7 Weeks 3,697 - 162,5 63 8 Weeks 32,06 5 - 149,5 71 9 Weeks 63,80 3 - 151,4 10 10 Weeks 46,50 9 - 186,9 77 12 Weeks 27,83 2 - 210,6 12 14 Weeks 13,95 0 - 62,53 0 15 Weeks 12,03 9 - 70,97 1 16 Weeks 9,040 - 56,45 1 17 Weeks 8,175 - 55,86 8 18 Weeks 8,099 - 58,17 6 Not Available [facility] (Lab) [address] , [place], [address], 01/14/2024 06:30:27 01/04/20 24 01/04/2024 US, obste tric, 1st trime ster No observ ation record ed. [facility] [address], [place], [address], 01/04/2024 17:55:07 Result Notes None recorded. Problems Name Problem SNOMED Code Status Onset Date Resolution Date Notes Provider Name and Address Organization Details Recorded Time Pregnanc y, childbir th and puerperi um finding Completed 201807/28/2020 Encounte r for supervis ion of normal 1st pregnanc y;Record ed Elsewher e: No Locat ion: Felicia mi [facility] S ource: EHR Manager Of Training And Development talon: N Practi ce ID: 0001 Xander lable Time: 03:00:00 PM Judy ferrari, [facility] 11:33:07 Uterine size for dates discrepa ncy Completed 201807/28/2020 Uterine size-nanette e discrepa ncy, third trimeste r;Practi ce ID: 0001 Judy ferrari, [facility] 11:33:00 Gestatio n period, 38 weeks [id number] Completed 201807/28/2020 38 weeks gestatio n of pregnanc y;Practi ce ID: 0001 Judy Benítez [facility], [facility] 11:32:27 Lacerati on of female perineum Completed 201807/28/2020 First degree perineal lacerati on during delivery ;Practic e ID: 0001 Judy Benítez vega, [facility] 11:32:49 Obesity in mother complica [facility] [id number] Completed 201807/28/2020 Obesity complica [facility];Pract ice ID: 0001 Judy ferrari, [facility] 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 11:32:23 Single live [id number] Completed 201807/28/2020 Single live ;Pr actice ID: 0001 Judy Jarathierry ferrari, [facility] 11:32:33 Pregnanc y detectio n examinat ion Completed 201807/28/2020 Encounte r for pregnanc y test, result positive ;Practic e ID: 0001 Judy ferrari, [facility] 11:33:24 Gestatio n period, 8 weeks [id number] Completed 201807/28/2020 8 weeks gestatio n of pregnanc y;Practi ce ID: 0001 Judy ferrari, [facility] 11:33:04 Normal pregnanc y in multigra joanne [id number] 4106 Completed 201807/28/2020 Encounte r for suprvsn of normal pregnanc y, first trimeste r;Practi ce ID: 0001 Judy ferrari, [facility] 11:33:15 Antenata l screenin g Completed 201807/28/2020 Encounte r for other specifie d antenata l screenin g;Practi ce ID: 0001 Judy ferrari, [facility] 11:32:59 Antenata l screenin g for malforma tion Completed 201807/28/2020 Encounte r for antenata l screenin g for malforma tions;Pr actice ID: 0001 Judy ferrari, [facility] 11:33:22 Pregnanc y, childbir th and puerperi um finding Completed 201807/28/2020 Encntr for suprvsn of normal first preg, third trimeste r;Practi ce ID: 0001 Judy ferrari, [facility] 11:33:09 Gestatio n period, 34 weeks [id number] Completed 201807/28/2020 34 weeks gestatio n of pregnanc y;Practi ce ID: 0001 Judy ferrari, [facility] 11:32:25 Irregula r periods [id number] Completed 201407/28/2020 Irregula r periods; Recorded Elsewher e: No Locat ion: [facility] S ource: EHR Manager Of Training And Development talon: N Practi ce ID: 0001 Xander lable Time: 11:00:00 AM [facility] 11:33:25 Depressi ve disorder [id number] Completed 201407/28/2020 Depressi on;Recor ded Elsewher e: No Locat ion: [facility] S ource: EHR Manager Of Training And Development talon: N Practi ce ID: 0001 Xander lable Time: 11:00:00 AM Judy ferrari [facility] 11:33:12 Speciali zed medical examinat ion Completed 201107/28/2020 Routine gynecolo gical examinat ion;Prac dory ID: 0001 [facility] 11:33:19 Screenin g for malignan t neoplasm of cervix Completed 201107/28/2020 Pap Smear;Pr actice ID: 0001 Judy ferrari [facility] 11:32:35 Varicose veins of vulva [id number] Completed 201107/28/2020 Vulval varices; Practice ID: 0001 Judy Jeyson vega [facility] 11:33:17 Irregula r intermen strual bleeding [id number] Completed 201407/28/2020 Metrorrh agia;Pra ctice ID: 0001 Judy Benítez vega [facility] 11:33:21 Pregnanc y test negative [id number] Completed 201407/28/2020 Negative Pregnanc y Test;Pra ctice ID: 0001 Judy ferrari [facility] 11:33:[address] Concept Completed 201807/28/2020 Encntr for jumpbasting lining baster exam (general ) (routine ) w/o abn findings ;Practic e ID: 0001 Judy ferrari [facility] 11:33:05 Infectio n screenin g Completed 201807/28/2020 Encounte r for screenin g for oth infec/pa rastc diseases ;Recorde d Elsewher e: No Locat ion: [facility] S ource: EHR Manager Of Training And Development talon: N Practi ce ID: 0001 Xander lable Time: 11:15:00 AM Judy ferrari [facility] 11:32:57 Lochia finding Completed 201807/28/2020 Encounte r for routine postpart um follow-u p;Record ed Elsewher e: No Locat ion: [facility] S ource: EHR Manager Of Training And Development talon: N Practi ce ID: [id number] Xander lable Time: 01:00:00 PM Judy ferrari [facility] 11:33:11 Body mass index 25-29 - overweig [id number] Completed 201807/28/2020 Body mass index (BMI) 28.0-28. 9, adult;Re corded Elsewher e: No Locat ion: [facility] S ource: EHR Manager Of Training And Development talon: N Practi ce ID: [id number] Xander lable Time: 11:15:00 AM Judy ferrari [facility] 11:32:31 Secondar y amenorrh ea [id number] Completed 201807/28/2020 Secondar y amenorrh ea;Recor ded Elsewher e: No [facility]ce: EHR Manager Of Training And Development talon: N Michael ce ID: [id number] Xander lable Time: 11:15:00 AM Judy Benítez null, [facility] 1 11:32:30 Syphilis test finding [id number] Completed 201807/28/2020 Encntr screen for infectio ns w sexl mode of transmis s;Record ed Elsewher e: No Locat ion: Felicia mi [facility] S ource: EHR Manager Of Training And Development talon: N Anayeliti ce ID: [id number] Xander lable Time: 11:15:00 AM Judy Benítez null, [facility] 1 11:33:14 Pregnanc y [id number] Completed 202006/03/2021 Martha Liriano hl null, [facility] 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 2 23:18:40 Vanishin g twin syndrome 518618818 Active 8w6d L Kimani null, [facility] 2 08:11:02 Nausea [id number] Completed unisom Martha Liriano hl null, [facility] 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 - no further f/u, rec 32wk u/s for growth; Per Peds Ortho to f/u 2 weeks after delivery . Martha Liriano hl null, [facility] 2 23:18:40 Disorder of amniotic cavity AND/OR membrane [id number] Completed Possible separati on of amnion and chorion or band. Martha Craftnstie hl null, [facility] 2 23:18:40 COVID-19 [id number] Completed 2021 ASA & serial growth Martha Liriano hl null, [facility] 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 4 10:23:18 Mixed anxiety and depressi ve disorder 379547389 Active 2023 Francisca Wbeb null, [facility] 4 10:23:36 Problem Notes None recorded. Procedures Surgical History Date Name Laterality Status Provider Name and Address Organization Details Recorded Time 4 biopsy of perianal tissue completed Francisca Webb [facility] 12/21/2023 10:26:04 4 Vulvar Biopsy completed Florecita Owens [facility] [address], [place], [address], [facility] 07/14/2023 10:36:57 2 Date of Last Pap Smear completed Antonieta Jay [facility] 07/06/2023 10:32:10 6 incision of ingrown nail completed Francisca Webb [facility] 12/21/2023 10:26:41 Imaging Results Imaging Date Name Status LastModified by Organiz ation Details LastModified Time 01/04/2024 US, obstetric, 1st trimester completed [facility] [address], [place], [address], 01/04/2024 17:55:07 Procedure Notes None recorded. Medical Equipment None Reported. Allergies Allergen ID Allergen Name Allergen Category Reaction Reaction Severity Criticality Documentation Date Start Date Code Code System Note Provider Name and Address Organization Details Recorded Time 9880 nickel environme nt Not available Not available Not available 02/08/2020 88778 29 RxNorm Judy Benítez [facility] 1 11:33:39 Medications Name Sig Start Date Stop Date Status Note LastModified by Organization Details LastModified Time amoxicill in 500 mg capsule TAKE ONE CAPSULE BY MOUTH EVERY 8 HOURS UNTIL ALL TAKEN 07/05 completed Not Available Not Available Not Available dicloxaci llin 500 mg capsule Take 1 tablet by mouth every 12 hours 07/05 completed Not Available Not Available Not Available doxycycli ne hyclate 100 mg capsule TAKE 1 CAPSULE BY MOUTH TWICE DAILY FOR 3 DAYS 07/25 completed Not Available Not Available Not Available azithromy clay 250 mg tablet TAKE 2 TABLETS BY MOUTH FOR 1 DAY THEN TAKE 1 TABLET BY MOUTH DAILY FOR 4 DAYS 07/05 completed Not Available Not Available Not Available nystatin 100,000 unit/gram topical ointment APPLY TO THE AFFECTED AREA FOUR TIMES DAILY FOR 7 DAYS 07/25 completed Not Available Not Available Not Available fluconazo le 150 mg tablet TAKE 1 TABLET BY MOUTH ONCE WEEKLY FOR 8 WEEKS 07/05 completed Not Available Not Available Not Available Nystop 100,000 unit/gram topical powder APPLY TOPICALL Y TO THE AFFECTED AREA TWICE DAILY 07/05 completed Not Available Not Available Not Available fluconazo le 200 mg tablet TAKE 1 TABLET BY MOUTH ONCE TIME 07/25 completed Not Available Not Available Not Available dextroamp hetamine- amphetami ne 10 mg tablet TAKE 1 TABLET EVERY DAY AT NOON 12/20 completed Not Available Not Available Not Available alclometa sone 0.05 % topical cream APPLY TO AFFECTED AREAS OF GROIN TWICE DAILY NEEDED FOR ITCH. 12/20 completed Not Available Not Available Not Available amoxicill in 500 mg tablet TAKE 1 TABLET BY MOUTH EVERY 8 HOURS UNTIL GONE. 07/05 completed Not Available Not Available Not Available hydrocort isone 2.5 % topical cream with perineal applicato r APPLY RECTALLY TO THE AFFECTED AREA DAILY NEEDED FOR HEMORRHO IDS 07/05 completed Not Available Not Available Not Available Zoloft 50 mg tablet take 1 tablet by oral route every day 02/28 completed Prescrib ed Elsewher e: No Locat ion: Felicia mi [facility] M odify By: [email or web address] Encount er DateTime : 10/04/19 15 11:45:00 AM Not Available Not Available Not Available dextroamp hetamine- amphetami ne ER 20 mg 24hr capsule,e xtend release TAKE 1 CAPSULE BY MOUTH ONCE DAILY IN THE MORNING 12/20 completed Not Available Not Available Not Available cephalexi n 500 mg capsule TAKE ONE CAPSULE BY MOUTH TWICE DAILY 12/20 completed Not Available Not Available Not Available triamcino lone acetonide 0.1 % topical ointment APPLY A THIN LAYER TO THE AFFECTED AREA(S) BY TOPICAL ROUTE 2 TIMES PER DAY PRN ONLY 07/25 completed Not Available Not Available Not Available clotrimaz ole-betam ethasone 1 %-0.05 % topical cream APPLY TOPICALL Y TO THE AFFECTED AREA TWICE DAILY 07/05 completed Not Available Not Available Not Available albendazo le 200 mg tablet 12/20 completed Not Available Not Available Not Available dextroamp hetamine- amphetami ne 15 mg tablet TAKE 1 TABLET BY MOUTH EVERY NIGHT 11/24 completed Not Available Not Available Not Available mupirocin 2 % topical ointment APPLY TO WOUNDS TWICE DAILY UNTIL HEALED. 12/20 completed Not Available Not Available Not Available clobetaso l 0.05 % topical ointment APPLY THIN LAYER TOPICALL Y TO THE AFFECTED AREA TWICE DAILY 12/20 completed Not Available Not Available Not Available methylpre dnisolone 4 mg tablets in a dose pack FOLLOW PACKAGE DIRECTIO NS 12/20 completed Not Available Not Available Not Available dicloxaci llin 250 mg capsule 07/05 completed Not Available Not Available Not Available clotrimaz ole 1 % topical cream APPLY TOPICALL Y TO THE AFFECTED AREA EVERY 12 HOURS FOR 2 WEEKS 07/05 completed Not Available Not Available Not Available doxycycli ne hyclate 100 mg tablet 07/25 completed Not Available Not Available Not Available amoxicill in 875 mg-potass ium clavulana te 125 mg tablet 07/05 completed Not Available Not Available Not Available Lexapro 10 mg tablet Take 1 tablet every day by oral route. 12/20 completed Not Available Not Available Not Available escitalop shanel 5 mg tablet TAKE 1 TABLET BY MOUTH EVERY DAY 06/08 completed Not Available Not Available Not Available nitrofura ntoin monohydra te/macroc rystals 100 mg capsule TAKE 1 CAPSULE BY MOUTH EVERY 12 HOURS FOR 7 DAYS 03/27 completed Not Available Not Available Not Available 07/05 completed Not Available Not Available Not Available 28 mg iron-800 mcg tablet 07/28 completed Prescrib ed Tyson e: Yes Loca tion: [facility] M odify By: [email or web address] Encount er DateTime : 02/28/19 11:15:00 AM Not Available Not Available Not Available Vitals Date Recorded Body height Body mass index (BMI) Body weight Systolic blood pressure Diastolic blood pressure Provider Name and Address Organization Details Last Updated DateTime 07/06/2023 170.18 cm 34.1 kg/m2 64598.14 g 108 mm[Hg] 74 mm[Hg] Antonieta Jay [facility] 4 10:27:19 Date Recorded Body height Body mass index (BMI) Body weight Systolic blood pressure Diastolic blood pressure Provider Name and Address Organization Details Last Updated DateTime 07/08/2023 170.18 cm 33.8 kg/m2 96837.95 g 113 mm[Hg] 57 mm[Hg] Mara [facility] 4 11:09:06 Date Recorded Body height Body mass index (BMI) Body weight Systolic blood pressure Diastolic blood pressure Provider Name and Address Organization Details Last Updated DateTime 07/13/2023 170.18 cm 33.8 kg/m2 65224.95 g 119 mm[Hg] 84 mm[Hg] Magdalene Carrasco [facility] 4 11:24:16 Date Recorded Body height Body mass index (BMI) Body weight Systolic blood pressure Diastolic blood pressure Provider Name and Address Organization Details Last Updated DateTime 07/26/2023 170.18 cm 33.8 kg/m2 45007.95 g 110 mm[Hg] 73 mm[Hg] Mara [facility] 4 11:09:00 Date Recorded Body height Body mass index (BMI) Body weight Systolic blood pressure Diastolic blood pressure Provider Name and Address Organization Details Last Updated DateTime 12/21/2023 170.18 cm 34.3 kg/m2 19004.73 g 112 mm[Hg] 73 mm[Hg] Francisca Webb [facility] 4 10:22:31 Social History Question Answer Notes LastModified by Organizat ion Details LastModified Time Tobacco Smoking Status Former Smoker Judy Benítez vega, [facility] 07/28/2020 12:22:00 What Is Your Level Of Alcohol Consumption? Occasional [email or web address] Information not available 11/24/2020 If You Are , What Was Your Level Of Alcohol Consumption Prior To ? None [email or web address] Information not available 11/24/2020 Are You Blind Or Do You Have Difficulty Seeing? No [email or web address] Information not available 11/24/2020 What Is Your Level Of Caffeine Consumption? Occasional [email or web address] Information not available 11/24/2020 In The 14 Days Before Symptom Onset, Have You Had Close Contact With A Laboratory-confir med COVID-19 While That Case Was Ill? No [email or web address] Information not available 11/24/2020 In The 14 Days Before Symptom Onset, Have You Had Close Contact With A Person Who Is Under Investigation For COVID-19 While That Person Was Ill? No [email or web address] Information not available 11/24/2020 Have You Been To An Area Known To Be High Risk For COVID-19? No [email or web address] Information not available 11/24/2020 Are You Deaf Or Do You Have Serious Difficulty Hearing? No [email or web address] Information not available 11/24/2020 What Type Of Diet Are You Following? REGULAR [email or web address] Information not available 11/24/2020 Do You Use Your Seat Belt Or Car Seat Routinely? Yes [email or web address] Information not available 11/24/2020 Do You Have Smoke And Carbon Monoxide Detectors In Your Home? Yes [email or web address] Information not available 11/24/2020 Do You Feel Stressed (tense, Restless, Nervous, Or Anxious, Or Unable To Sleep At Night)? [id number] [email or web address] Information not available 11/24/2020 Do You Use Any Illicit Or Recreational Drugs? No [email or web address] Information not available 11/24/2020 Do You Use Sunscreen Routinely? Yes [email or web address] Information not available 11/24/2020 Has Tobacco Cessation Counseling Been Provided? No [email or web address] Information not available 11/24/2020 Do You Or Have You Ever Used Any Other Forms Of Tobacco Or Nicotine? No [email or web address] Information not available 11/24/2020 Sex: Unknown Functional Status Question Answer Note LastModified by Organizat ion Details LastModified Time Do you have difficulty walking or climbing stairs? No [email or web address] Information not available 05/07/2021 Are you able to walk? [email or web address] Information not available 11/24/2020 Are you able to care for yourself? Yes [email or web address] Information not available 05/07/2021 Do you have difficulty dressing or bathing? No [email or web address] Information not available 05/07/2021 What is your exercise level? Occasional Information not available 11/24/2020 Mental Status None recorded. Family History Relationship Description Onset Age of this Age Resolved Age Notes LastModified by Organization Details LastModified Time Father Diabetes mellitus [email or web address] Not available 2020 12:20:15 Maternal Grandmother Cyst of ovary [email or web address] Not available 2020 12:20:39 Mother Polycystic ovary syndrome [email or web address] Not available 2020 12:20:48 Mother Cyst of ovary [email or web address] Not available 2020 12:20:52 Paternal Grandfather Diabetes mellitus [email or web address] Not available 2020 12:21:09 Paternal Grandmother Malignant tumor of breast [email or web address] Not available 2020 12:21:20 Sister Cyst of ovary [email or web address] Not available 2020 12:21:48 Sister Polycystic ovary syndrome Not available 2020 12:21:51 Maternal Grandfather Malignant tumor of lung [email or web address] Not available 07/07 11:21:38 Medical History Condition Response Allergies (Food, seasonal, environmental ) N Other Y Breast Cancer N Drug/Latex Allergies/Reactions Y Blood Transfusion N Dermatologic Disorders N Lung Disease N Defects or Inherited Disease N Breast Problem N Gestational Diabetes N Hematologic disorders N Anesthesia Complications N History of STI N Deep Vein Thrombosis N Polycystic ovary syndrome N Anxiety Disorder Y Autoimmune disease N Arthritis N Infertility N Polyps N Acid Reflux (GERD) N History of abnormal pap N Cancer N Stroke N Varicosities N Neurologic/Epilepsy Y Endometriosis N High Cholesterol N Headaches N Fibromyalgia N Kidney Disease N Heart Problems N Kidney or Bladder Problems N Thyroid Problems N GI Problems N Eating Disorder N Anemia N Art (IVF or FET) N Psychiatric Illness Y Ovarian Cancer N Diabetes N Pulmonary (TB, Asthma) N Hepatitis/Liver Disease N No Past Medical History N Eczema N Urinary Tract Infection N Abuse/Domestic Violence N Asthma N Trauma/Violence N Depression/ depression Y Heart Disease N Pre-Eclampsia N Hypertension N Osteoporosis N Thrombophilias N Gynecological History Statement/Question Response Date of Last Mammogram Flow Moderate Date of LMP 10/22/2023 Was last menstrual period normal N STIs/STDs N Date of Last Colonoscopy Desired Control Method None Abnormal Pap N On BCP's at Conception? Y HPV Vaccine N Colposcopy Duration of Flow (days) 7 Current Control Method None Age at First Child 23 Are cycles usually normal Y Frequency of Cycle (Q days) 28 Sexually Active? Y Menses Monthly Y Date of DEXA bone scan Age of first menstrual cycle 11 Date of Last Pap Smear 06/30/2021 Sexual Problems? N LMP Definite Obstetrics History GPAL:G 2 P 2 0 0 2 Type Value Full Term 2 Living 2 Total 2 Immunizations Vaccine Type Date Status Note Provider Patric mi and Address Organization Details Recorded Time Tdap 03/21/2021 completed Antonieta Jay [facility] 07/06/2023 10:27:29 Past Encounters Encounter ID Performer Location Encounter Start Date Encounter Closed Date Diagnosis/Indication Diagnosis SNOMED-CT Code Diagnosis ICD10 Code Diagnosis Note [id number] Kina [facility] [address] [address] 09/22/2020 14:00:37 09/23/2020 16:18:16 test positive 289331511 Z32.01 Risk factors addressed: Tobacco Cessation, Safe Sexual Practices, environmen yesika, work hazards, travel restrictio ns, seat belt use.Eat a health well balanced diet, avoid alcohol, tobacco, and street drugs.Enga ge in daily low impact exercise, avoid temperatur e extremes, and cat, rodent, and bird feces.Avoi d travel to areas where zika virus is a concern.Of fered cf/sma/nip t. Handouts given and discussed with patient.Ch ildbirth classes recommende d.New OB sheet given.If previous , counseling .Pt verbalizes that she understand s the importance of above instructio ns.All questions were answered.P atient reminded to have annual well woman examinatio n and address [facility] . 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 [id number] Merlyn Simeon MD [facility] [address],[place] [address] 11/24/2020 11:02:52 11/24/2020 12:57:26 Vanishing twin syndrome 356479970 O31.12X2 Z3A.15 Routine an tenatal care 960045021 Z34.91 [id number] Kizzy Mueller [facility] [address] [address] 11/24/2020 10:56:28 11/24/2020 12:00:49 Vanishing twin syndrome 208079644 O31.12X2 Z3A.15 [id number] [facility] [address] [address] 12/22/2020 09:57:32 12/23/2020 11:01:35 Routine care 061030216 Z34.92 [id number] Re Robb [facility] [address] [address] 12/22/2020 09:56:47 12/22/2020 11:29:19 screening for malformation 583987216 Z36.3 [id number] [facility] [address],[place] [address] 01/06/2021 16:41:04 01/08/2021 13:41:38 Urinary symptoms 688846148 R39.9 [id number] [facility] [address],[place] [address] 01/20/2021 10:08:43 01/20/2021 11:48:20 Routine care 771464820 Z34.92 [id number] [facility] [address],[place] [address] 02/16/2021 09:34:34 02/16/2021 09:55:47 Routine care 871669553 Z34.92 [id number] [facility] [address],[place] [address] 03/09/2021 10:15:02 03/09/2021 10:49:35 Routine care 473683179 Z34.92 [id number] [facility] [address],[place] [address] 03/18/2021 10:33:15 03/18/2021 11:29:02 Routine care 319295307 Z34.92 [id number] Kizzy Mueller [facility] [address],[place] [address] 03/18/2021 10:27:53 03/18/2021 11:09:29 Pre-existing maternal disease complicating 4606659726 6106 O99.891 U07.1 Z3A.32 [id number] [facility] [address],[place] [address] 03/30/2021 10:01:25 03/30/2021 11:38:04 Routine care 413831692 Z34.92 [id number] [facility] [address],[place] [address] 04/13/2021 16:57:46 04/13/2021 18:24:05 Routine care 652285533 Z34.92 [id number] [facility] [address],[place] [address] 04/13/2021 16:57:20 04/13/2021 17:36:22 Disease of the respiratory system complicating , childbirth and/or the puerperium 272216942 O99.893 U07.1 Z3A.35 [id number] [facility] [address],[place] [address] 04/20/2021 15:58:18 04/20/2021 16:17:40 Polyhydramnios 75711177 O40.3XX0 Z3A.36 [id number] [facility] [address],[place] [address] 04/20/2021 15:59:38 04/20/2021 18:14:46 Routine care 876432221 Z34.92 [id number] [facility] [address],[place] [address] 2021 13:57:25 2021 15:51:41 Routine care 985334467 Z34.92 [id number] Kizzy Mueller [facility] [address],[place] [address] 2021 13:57:05 2021 14:56:27 Polyhydramnios 30693489 O40.3XX0 Z3A.37 [id number] [facility] [address] [address] 05/07/2021 10:45:11 05/07/2021 11:34:39 Routine care 498763773 Z34.93 [id number] [facility] [address],[facility] [place] [address] 06/08/2021 16:06:04 06/09/2021 16:58:29 state 86401631 Z39.2 Continue to watch for signs/symp toms of post depression . Return one year from last pap smear for a well woman exam. Patient received above instructio ns, and questions have been answered. If you have any questions please call or respond to this email. Patient was made aware of the patient portal and may obtain a paper copy of today's plan if desired External hemorrhoids [id number] 38088 K64.4 [id number] [facility] [address],[place] [address] 06/30/2021 15:36:28 07/01/2021 17:03:30 Gynecologic examination 15546331 Z01.419 Z11.51 Take Calcium with Vitamin D 1200mg daily if not receiving in daily diet. It is strongly advised to have an annual flu shot and up can obtain at most pharmacies . If you have not had a TDap shot in the last 10 years you should obtain one as well. Discussed with patient & provided with informatio n regarding Gardisil vaccine to prevent the 4 strains for HPV that cause cervical cancer if under age 26. Encourage safe sexual practices, to use condoms and limit partners if not already in a monogamous relationsh ip. Do monthly self breast exams. Have mammogram yearly or every other year depending on family history. BRCA testing is now available for patients with strong genetic history of female cancer. If interested contact the office. Engage in daily exercise of low impact aerobic exercise 45-60 minutes 4-5 times weekly. Avoid tobacco and illicit drugs as well as using moderation with alcohol intake less than 1-2 8 oz beverages daily. This lifestyle behavior pattern will lead to less health conditions and longer life span. If BMI greater than 25 weight watchers or dietary consult advised. Patient received above instructio ns, and questions have been answered. If you have any questions please call or respond to this email. Patient was made aware of the patient portal and may obtain a paper copy of today's plan if desired. [id number] [facility] [address] [address] 07/06/2023 10:19:16 07/06/2023 11:57:11 Vaginal irritation 955206353 N89.8 clobetasol bid x 2 weeks, ok for crisco/melanie onut oil, plan biopsy in 2 weeks Rectal irritation 563398 002 K62.89 [id number] Florecita Owens [facility] [address] [address] 07/08/2023 10:58:55 07/14/2023 15:08:59 Itching of skin 659388836 L29.9 Perianal rectal itching for multiple months and is now getting worse.[facility] h biopsy completed (see procedure notes) [id number] Florecita Owens [facility] [address],[place] [address] 07/13/2023 11:20:50 07/13/2023 11:46:01 Skin lesion 48552546 L98.9 Follow up to skin biopsy for perianal itching/sk in discolorat ion.Healin g well; small piece of skin at edge of biopsy border; still open but no drainage or erythema.W ill take abx and hopefully this can also help speed healing. Itching of skin 71233963 0 L29.9 Issues is same/not worsening but not getting better.We agreed to abx doxycyclin e/diflucan and will see how she is doing in a week.Zinc Oxide ointment to anal area; Vaseline for barrier on biospy site.Consi celina referral to derm if unabl to determine next steps.Will reach out in a week and we can determine next steps. Time spent in visit is a total of 18 mins with at least 50% of visit consisting of counseling and review of plan of care. [id number] Florecita Owens [facility] [address],[place] [address] 07/26/2023 10:45:43 07/26/2023 16:51:31 Pruritic rash 77028097 L28.2 Today we discussed swabs sent out and referral to both Derm/GI as still uncertain what is going on.No definitive answers with any of the testing done & little to no response therapies she has tried so far.Exam no worse but no better.Blu olvera update her on results & recommende d she call for appt with derm/has GI set up. Generalize d anxiety disorder 79074419 F41.1 MUCH anxiety.Pr eviously discussed trial of lexapro 10mg to start which was sent in.Neg SI/HIMed check due in 4wks Counseled on r/b's, most common side effects of this therapy with instructio ns to stop medication with any significan t abnormal change in mood especially with thoughts of suicide/se lf-harm/chamberlain rm to others. Understand ing verbalized . Time spent in visit is a total of 22 mins with at least 50% of visit consisting of counseling and review of plan of care. [id number] Patti Molina, [facility] [address] [address] 12/21/2023 09:57:49 12/21/2023 15:47:14 Amenorrhea 96791397 N91.2 trying to conceive will await results and plan us Trying to conceive 73501 9001 Z31.9 Health Concerns Section Related Observation LastModified by Organization Detai ls LastModified Time None Recorded Concern Status LastModified by Organization Details LastModified Time None Recorded Advance Directives Directive None Recorded Payers Encounter Date Sequence Insurance Name Policy Number Policy Peterson Covered Member ID Peterson Member ID Guarantor Name 07/06/2023 1 [place] [id number] Helio Vickers [id number] [address] [facility] 07/08/2023 1 [place] [id number] Helio Vickers [id number] 95 [facility] 07/13/2023 1 [place]) [id number] Helio Vickers [id number] 95 [facility] 07/26/2023 1 [place] [id number] Helio Vickers [id number] 95 Yamila Vickers 12/21/2023 1 [place] [id number] Helio Rancho [id number] 95 Yamila Vickers Notes Date Note Type Note Provider Name and Address Organization Details Recorded Time 07/06/2023 text/html c/o mainly recta l irritation, has been seeing pcp with no resolution, at one time they questioned tape worms, pt says itching all day not just in pm, nothing has made it better, yeast or otc steroid treatmentocc vaginal irritation, but main complaint is rectal tissue, no hx hemorrhoids, no complaints of diarrhea or constipation Patti Molina CNM [address], [place], [address], [facility] 07/06/2023 17:15:25 07/08/2023 text/html Here today for biopsy for perianal itching/skin changes. [facility] [address], [place], [address], [facility] 07/14/2023 10:37:23 07/26/2023 text/html Here today for f /u perianal swab culture. [facility] [address], [place], [address], [facility] 07/26/2023 16:02:49 12/21/2023 text/html f/u faint positi ve on home test last week, reviewed labs slightly elevated testosterone. other labs wnltrying to conceive x 2 months, faint + UPT herecycle one week late Patti Molina CNM [address], [place], [address], [facility] 12/21/2023 13:41:46 OBGyn Episode Ob Episode Information Episode Created Date Number of Fetuses Patient Bloodtype Patient rh Status Prepregnancy Weight lbs Domestic Partner Domestic Partner Phone Father Name Machine Bunch Maker Status 07/29/19 21 1 CLOSED Fetus Data First Name Last Name Admitted to NICU Weight (g) Sex Living Outcome Pediatric Complications Fetus ID Race Codes Race Delivery Type 3600.15 9704 M Full Term [id number] Vaginal Delivery Jeremy Calculation Initial Jeremy Date Initial Exam Date Initial Exam Provider Initial Ultrasound Date Last Menstrual Period Date Ultra Sound Weeks Gestation 0 Eighteen To Twenty Week Jeremy Update Ultra Sound Date Fundal Height At Umbil Quickening Date Ultra Sound Latest Weeks Gestation Final Jeremy Confirmed By Final Jeremy Confirmed Date Final Jeremy Date Ultra Sound Latest Days Gestation 0 0 Menstrual History Last Menstrual Date Menses Monthly On Bcp Conception Prior Menses Frequency Hcg Plus Date Menarche Onset Age Delivery Information Delivery Date Delivery Type Labor Anesthesia Weeks Gestation Incision Type Labor Labor Length Hrs Delivered By Post Complications Tubal Sterilization Discharge Date Comments 9 40 Discharge Information Feeding Method Contraceptive Method Maternal HG B and HCT Levels Ob Episode Information Episode Created Date Number of Fetuses Patient Bloodtype Patient rh Status Prepregnancy Weight lbs Domestic Partner Domestic Partner Phone Father Name Machine Bunch Maker Status 10/29/19 21 1 O Positive 209 CLOSED Fetus Data First Name Last Name Admitted to NICU Weight (g) Sex Living Outcome Pediatric Complications Fetus ID Race Codes Race Delivery Type 3997.27 95 F true Full Term Club foot bilateral & meconium stool [id number] Vaginal Delivery Problems Problem Notes *04/13/21 Borderline high MEHRDAD . MEHRDAD 25.73cm. Rpt 1wkdeclines COVID vaccine/NIPT/SMA/CF Problem Name Start Date End Date Resolution Snomed Code Not e Vanishing twin syndrome [id number] 8w6d COVID-19 02/27/2021 [id number] ASA & ser ial growth Nausea MEDICATION [id number] unisom clubfoot [id number] [facility] Level II 01/21/21. - no further f/u, rec 32wk u/s for growth; Per Peds Ortho to f/u 2 weeks after delivery. Disorder of amniotic cavity AND/OR membrane [id number] Possible sep aration of amnion and chorion or band. Jeremy Calculation Initial Jeremy Date Initial Exam Date Initial Exam Provider Initial Ultrasound Date Last Menstrual Period Date Ultra Sound Weeks Gestation 05/13/2021 10/28/2020 09/22/2020 07/20/2020 6 Eighteen To Twenty Week Jeremy Update Ultra Sound Date Fundal Height At Umbil Quickening Date Ultra Sound Latest Weeks Gestation Final Jeremy Confirmed By Final Jeremy Confirmed Date Final Jeremy Date Ultra Sound Latest Days Gestation 0 [email or web address] 10/28/2020 05/14/19 22 0 Pre-serenity Flowsheet Flowsheet Date 10/28/2020 Chacon Score Blood Edema Fundus Height Fundus Units Glucose Ketones Leukocytes Nitrite Labor Signs Protein Cervic Dilation Cervic Effacement Cervic Station neg none Type Weight in lbs Pre/Post Dialysis Refused BP Diastolic BP Location Tested BP Systolic BP Type 72 110 Fetus Heart Rate Present A 165 Fetus Movement A No Comments Yamila is a 25yo wh o presents for care. Was di/di twin , today on US twin B demise at 8w6d. Baby A with normal NT. Declines NIPT, labs today. Discussed and encouraged COVID vaccine, pt declines. Has a wart on finger, discussed OTCs. Pap after , all normal. Last uncomplicated term vaginal delivery. She is understandably upset re loss of twin. Support given, offered counseling resources, more frequent visits if needed, antidepressants discussed. She declines all for now. Will call if needs further support. Flowsheet Date 10/31/2020 Chacon Score Blood Edema Fundus Height Fundus Units Glucose Ketones Leukocytes Nitrite Labor Signs Protein Cervic Dilation Cervic Effacement Cervic Station Type Weight in lbs Pre/Post Dialysis Refused BP Diastolic BP Location Tested BP Systolic BP Type Fetus Heart Rate Present Fetus Movement Comments Flowsheet Date 11/24/2020 Chacon Score Blood Edema Fundus Height Fundus Units Glucose Ketones Leukocytes Nitrite Labor Signs Protein Cervic Dilation Cervic Effacement Cervic Station Type Weight in lbs Pre/Post Dialysis Refused BP Diastolic BP Location Tested BP Systolic BP Type Fetus Heart Rate Present Fetus Movement Comments Flowsheet Date 11/24/2020 Chacon Score Blood Edema Fundus Height Fundus Units Glucose Ketones Leukocytes Nitrite Labor Signs Protein Cervic Dilation Cervic Effacement Cervic Station neg none trace Type Weight in lbs Pre/Post Dialysis Refused Weight 221.072551531082 BP Diastolic BP Location Tested BP Systolic BP Type 69 107 Fetus Heart Rate Present A 140 Fetus Movement A Yes Comments Doing ok. Still taking uniso m for nausea, it is helping. Mood is ok re losing twin. Discussed and encouraged flu shot. Anatomy US next visit. Flowsheet Date 12/22/2020 Chacon Score Blood Edema Fundus Height Fundus Units Glucose Ketones Leukocytes Nitrite Labor Signs Protein Cervic Dilation Cervic Effacement Cervic Station Type Weight in lbs Pre/Post Dialysis Refused BP Diastolic BP Location Tested BP Systolic BP Type Fetus Heart Rate Present Fetus Movement Comments Flowsheet Date 12/22/2020 Chacon Score Blood Edema Fundus Height Fundus Units Glucose Ketones Leukocytes Nitrite Labor Signs Protein Cervic Dilation Cervic Effacement Cervic Station none trace Type Weight in lbs Pre/Post Dialysis Refused Weight 227.396202566071 BP Diastolic BP Location Tested BP Systolic BP Type 70 134 Fetus Heart Rate Present Fetus Movement A Yes Comments Flowsheet Date 01/06/2021 Chacon Score Blood Edema Fundus Height Fundus Units Glucose Ketones Leukocytes Nitrite Labor Signs Protein Cervic Dilation Cervic Effacement Cervic Station none Type Weight in lbs Pre/Post Dialysis Refused Weight 231.158489638698 BP Diastolic BP Location Tested BP Systolic BP Type 63 127 Fetus Heart Rate Present Fetus Movement A Yes Comments Had mfm visit. Confirmed lef t club foot. Pt does c/o leaking fluid. Sent to L&D for rom plus and u/s with MEHRDAD. Mood has improved with Lexapro. Pt would like to stay on current dose. Urine dip normal. Flowsheet Date 01/20/2021 Chacon Score Blood Edema Fundus Height Fundus Units Glucose Ketones Leukocytes Nitrite Labor Signs Protein Cervic Dilation Cervic Effacement Cervic Station neg trace trace Type Weight in lbs Pre/Post Dialysis Refused Weight 236.514822095370 BP Diastolic BP Location Tested BP Systolic BP Type 72 114 Fetus Heart Rate Present A 139 Fetus Movement A Yes Comments Doing well. Has noticed incr eased cramping at work when doing more strenuous tasks. Note given to avoid lifting over 25 lbs and may need to modify works tasks if they cause discomfort. Flowsheet Date 02/16/2021 Chacon Score Blood Edema Fundus Height Fundus Units Glucose Ketones Leukocytes Nitrite Labor Signs Protein Cervic Dilation Cervic Effacement Cervic Station none 29 none trace Type Weight in lbs Pre/Post Dialysis Refused Weight 238.980470983788 BP Diastolic BP Location Tested BP Systolic BP Type 74 118 Fetus Heart Rate Present A 147 Fetus Movement A Yes Comments Doing well. Gtt today. Encou raged tdap. Flowsheet Date 03/09/2021 Chacon Score Blood Edema Fundus Height Fundus Units Glucose Ketones Leukocytes Nitrite Labor Signs Protein Cervic Dilation Cervic Effacement Cervic Station neg none 33 none trace Type Weight in lbs Pre/Post Dialysis Refused Weight 241.33593792939 BP Diastolic BP Location Tested BP Systolic BP Type 67 R arm 102 sitting Fetus Heart Rate Present A 142 Fetus Movement A Yes Comments Doing well. Covid symptoms w ere mild and resolved. Plan growth ultrasounds. Discussed stretches for sciatica. Flowsheet Date 03/18/2021 Chacon Score Blood Edema Fundus Height Fundus Units Glucose Ketones Leukocytes Nitrite Labor Signs Protein Cervic Dilation Cervic Effacement Cervic Station Type Weight in lbs Pre/Post Dialysis Refused BP Diastolic BP Location Tested BP Systolic BP Type Fetus Heart Rate Present Fetus Movement Comments Flowsheet Date 03/18/2021 Chacon Score Blood Edema Fundus Height Fundus Units Glucose Ketones Leukocytes Nitrite Labor Signs Protein Cervic Dilation Cervic Effacement Cervic Station none none trace Type Weight in lbs Pre/Post Dialysis Refused Weight 246.456658858030 BP Diastolic BP Location Tested BP Systolic BP Type 76 133 Fetus Heart Rate Present Fetus Movement A Yes Comments Doing well. U/S today. Await recommendations. Pre admit already scheduled. Flowsheet Date 03/30/2021 Chacon Score Blood Edema Fundus Height Fundus Units Glucose Ketones Leukocytes Nitrite Labor Signs Protein Cervic Dilation Cervic Effacement Cervic Station none 34 none trace Type Weight in lbs Pre/Post Dialysis Refused Weight 247.243567310967 BP Diastolic BP Location Tested BP Systolic BP Type 78 124 Fetus Heart Rate Present A 151 Fetus Movement A Yes Comments Doing well. Planning inducti on on 05-10 or 05-11. Note given to start maternity leave at 37 weeks per patient request. Only occasional contractions. Flowsheet Date 04/13/2021 Chacon Score Blood Edema Fundus Height Fundus Units Glucose Ketones Leukocytes Nitrite Labor Signs Protein Cervic Dilation Cervic Effacement Cervic Station Type Weight in lbs Pre/Post Dialysis Refused BP Diastolic BP Location Tested BP Systolic BP Type Fetus Heart Rate Present Fetus Movement Comments Flowsheet Date 04/13/2021 Chacon Score Blood Edema Fundus Height Fundus Units Glucose Ketones Leukocytes Nitrite Labor Signs Protein Cervic Dilation Cervic Effacement Cervic Station trace none trace Type Weight in lbs Pre/Post Dialysis Refused Weight 254.780032574451 BP Diastolic BP Location Tested BP Systolic BP Type 77 120 Fetus Heart Rate Present Fetus Movement A Yes Comments Doing well. Occasional contr actions. GBS collected today. Labor precautions. U/S today. Flowsheet Date 04/20/2021 Chacon Score Blood Edema Fundus Height Fundus Units Glucose Ketones Leukocytes Nitrite Labor Signs Protein Cervic Dilation Cervic Effacement Cervic Station Type Weight in lbs Pre/Post Dialysis Refused BP Diastolic BP Location Tested BP Systolic BP Type Fetus Heart Rate Present Fetus Movement Comments Flowsheet Date 04/20/2021 Chacon Score Blood Edema Fundus Height Fundus Units Glucose Ketones Leukocytes Nitrite Labor Signs Protein Cervic Dilation Cervic Effacement Cervic Station none 38 none trace 1cm Type Weight in lbs Pre/Post Dialysis Refused Weight 251.96418368064 BP Diastolic BP Location Tested BP Systolic BP Type 74 123 Fetus Heart Rate Present Fetus Movement A Yes Comments Doing well. Increased heartb urn. Will start plain pepcid. MEHRDAD elevated again today. Will repeat 1 hour gtt and hgba1c today.Planning MIL for 05-10 between 8pm and 10pm once her son is asleep. Flowsheet Date 2021 Chacon Score Blood Edema Fundus Height Fundus Units Glucose Ketones Leukocytes Nitrite Labor Signs Protein Cervic Dilation Cervic Effacement Cervic Station Type Weight in lbs Pre/Post Dialysis Refused BP Diastolic BP Location Tested BP Systolic BP Type Fetus Heart Rate Present Fetus Movement Comments Flowsheet Date 2021 Chacon Score Blood Edema Fundus Height Fundus Units Glucose Ketones Leukocytes Nitrite Labor Signs Protein Cervic Dilation Cervic Effacement Cervic Station trace 39 none trace 1cm Type Weight in lbs Pre/Post Dialysis Refused Weight 252.270235401640 BP Diastolic BP Location Tested BP Systolic BP Type 75 122 Fetus Heart Rate Present A 140 Fetus Movement A Yes Comments Planning MIL for 05/10. Carla worthington to do pitocin. Will recheck cervix next week to determine plan. Labor precautions discussed. Flowsheet Date 05/07/2021 Chacon Score Blood Edema Fundus Height Fundus Units Glucose Ketones Leukocytes Nitrite Labor Signs Protein Cervic Dilation Cervic Effacement Cervic Station neg none trace 1cm -2 Type Weight in lbs Pre/Post Dialysis Refused Weight 253.662713854261 BP Diastolic BP Location Tested BP Systolic BP Type 75 114 Fetus Heart Rate Present A 149 Present Fetus Movement A Yes Comments PATIENT IS HAVING SOME CONTR ACTIONS AND DISCHARGE. precautions reviewed, plan MIL on tuesday Menstrual History Last Menstrual Date Menses Monthly On Bcp Conception Prior Menses Frequency Hcg Plus Date Menarche Onset Age 0507/20/2020 Genetic Screening And Infection History Question Response Note Mental Retardation/Autism false Patient's Age Will Be 35 Years Or Older At Estim ated Date of Delivery false Thalassemia (Swedish, Panamanian, Mediterranean, Or Background): MCV < 80 false Neural Tube Defect (Meningomyelocele, Spina Bifi da, Or Anencephaly) false Congenital Heart Defect false Down Syndrome false Abhijit-Sachs (eg, Yarsanism, Cajun, Kyrgyz-Jenera) f alse Cristin Disease false Sickle Cell Disease Or Trait () false Hemophilia Or Other Blood Disorders false Muscular Dystrophy false Cystic Fibrosis false [place]'s Chorea false Intellectual Disability/Autism false If Yes, Was Person Tested For Fragile X? false Other Inherited Genetic Or Chromosomal Disorder false Maternal Metabolic Disorder (eg, Type 1 Diabetes , PKU) false Patient Or Baby's Father Had A Child With Defects Not Listed Above false Recurrent Loss, Or A Stillbirth false Medications (including Suppl ements, Vitamins, Herbs, OTC Drugs), Illicit/Recreational Drugs, Alcohol false If Yes, Agent(s) And Strength/Dosage false Any Other Genetic History false Live With Someone With TB Or Exposed To TB false Patient Or Partner Has History Of Genital Herpes false Rash Or Viral Illness Since Last Menstrual Perio d false History Of STD, Gonorrhea, Chlamydia, HPV, Syphi lis false Other Infection History false History of HIV false History of Hepatitis false Prior GBS-infected child false Hemoglobinopathy Or Carrier false Other Structural Defect false Recent Travel History Outside of Country false Delivery Information Delivery Date Delivery Type Labor Anesthesia Weeks Gestation Incision Type Labor Labor Length Hrs Delivered By Post Complications Tubal Sterilization Discharge Date Comments 2 Induce d Regional-Ep idural 39.5 false Kina Bentley CNM Gbs+ Discharge Information Feeding Method Contraceptive Method Maternal HG B and HCT Levels
--- OUTSIDE RECORDS SUMMARY | 2024-05-10 15:42 | XMS_ITS | Clinical Summary ---
Author Organization [facility] Address [address] [place] [address] Care Team Providers Care Watch Repairer Name Role Phone Unavailable Primary Care Provider Unavailabl e Source Comments [facility],non-owned Affiliates and Associated Physician Practices is amultiple site organization consisting of ambulatory clinics and hospital sitesin [place], [place], [place] and [place]. This disclosure is being madepursuant to the Care Everywhere program and may not contain all information available regarding this patient. Last updated 17[employer] Allergies Active Allergy Reactions Criticality Noted Date Comments Nickel Rash Medium 12/23/2020 Medications * Be aware that medications may not be up to date on this document. Alwaysverify current medications with the patient. Medication Sig Dispensed Refills Start Date End Date Status Vit-Fe Fumarate-FA ( VITAMIN) 28-0.8 MG tabletIndications:Pre gnancy Take 1 tablet by mouth once daily Reasons: Active escitalopram (LEXAPRO) 5 MG tablet Take 5 mg by mouth once daily Active doxylamine (UNISOM) 25 MG tabletIndications:Ins omnia Take 25 mg by mouth nightly as needed for Insomnia Patient takes 1/2 tablet at bedtime, off and on, not nightly. Reasons: Trouble Sleeping Active Active Problems Problem Noted Date Diagnosed Date 24 weeks gestation of 01/21/2021 Abnormal ultrasound 12/23/2020 Overview (12/23/2020): 12/22/20 outside scan abnormal for possible left club foot, RVOT/LVOT and 3VV not seen due to position, Non fusion of amnion and chorion noted. 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 Second 12/23/2020 Overview (12/23/2020): O+, Negative, Immune, Rpr-NR, HIV-Neg, HBsag-Neg, HCV- Neg H/h/p: 12.4, 38.9, 326 NG, CT, Trich: Negative No genetics done. Resolved Problems Problem Noted Date Diagnosed Date Resolved Date abnormality in 12/29/2020 05/12/2021 Overview (01/06/2021): Images from the original note were not included. DETENTION PATIENT--PLEASE CALL [phone] (ex 2) IF TRIAGED OR ADMITTED PT NOT SEEN IN DETENTION - TELEMEDICINE ORTHO CONSULT ONLY Care Provider: Dr. Avitia/Brayden Bentley [facility] consultants involved: Pediatric Orthopedics- Rich Ann Diagnosis: Unilateral left clubfoot Planned surveillance: Delivery location: planning [place] Delivery mode: Desired Delivery GA: follow up: Please follow up in [facility] clinic 2 weeks after . To make an appointment, please call [phone]. Surfboard Designer: Dr. Valdez at [facility] Autopsy indicated: Genetics note: Kitchen Chef Concerns: Care plan based on evaluation and is subject to change based on assessment. See Images or Cardiac under Chart Review for US/ ECHO/ MRI reports. Family History Medical History Relation Name Comments Diabetes - Type 2 Father Hypertension Father Relation Name Status Comments Father Alive Mother Alive Social History Tobacco Use Types Packs/Day Years Used Date Smoking Tobacco: Former Cigarettes 0.5 7 0 02/2010 - 02/2017 Smokeless Tobacco: Never Alcohol Use Standard Drinks/Week Comments Not Currently 0 (1 standard drink = 0.6 oz pur e alcohol) Sex and Gender Information Value Date Recorded Sex Assigned at Not on file Gender Identity Not on file Sexual Orientation Not on file Last Filed Vital Signs Vital Sign Reading Time Taken Comments Blood Pressure - - Pulse - - Temperature - - Respiratory Rate - - Oxygen Saturation - - Inhaled Oxygen Concentration - - Weight 107 kg (235 lb 12.8 oz) 01/21/2021 2:28 P M PARISH VISITOR Height 170.2 cm (5' 7 ) 01/21/2021 2:28 PM PARISH VISITOR Body Mass Index 36.93 01/21/2021 2:28 PM PARISH VISITOR Plan of Treatment Health Maintenance Due Date Last Done Comments PAP SMEAR 1995 HEPATITIS C SCREENING 04/23/2013 DTAP/TDAP/TD VACCINES (1 - Tdap) 04/27/2014 HEPATITIS B VACCINE (1 of 3 - 19+ 3-dose series) 04/27/2014 COVID-19 VACCINE (1 - 2023-2 5 season) 2023 INFLUENZA VACCINE (#1) 2023 DEPRESSION SCREENING 02/22/2024 ZOSTER VACCINE (1 of 2) 04/27/2045 HIV SCREENING Completed 02/16/2021, 10/28/2020 HIB VACCINE Aged Out No longer eligi ble based on patient's age to complete this topic HPV VACCINE Aged Out No longer eligi ble based on patient's age to complete this topic MENINGOCOCCAL (Group B) VACCINE SHARED DECISION-MAKING Aged Out No longer eligible based on patient's age to complete this topic MENINGOCOCCAL GROUPS A/C/Y/W VACCINE Aged Out No longer eligible b ased on patient's age to complete this topic PNEUMOCOCCAL VACCINE Aged Out No long er eligible based on patient's age to complete this topic
== END 2024-05-10 15:28 | disposition home or self-care (01) ==
PROVIDERS: PCP Nurse Practitioner Family; Visit Provider Nurse Practitioner Family
DX: R10.31 Right lower quadrant pain (principal); O03.9 Complete or unspecified spontaneous abortion without complication; Z3A.00 Weeks of gestation of pregnancy not specified; D25.9 Leiomyoma of uterus, unspecified
CPT/HCPCS: 76830; 76856

== ENCOUNTER 2024-06-28 01:17 | Day surgery (SDC) | payer BC, SELFPAY ==
[2024-06-15 15:06] VITALS: BMI 35.7
--- NOTE | 2024-06-15 15:07 | PC.NURSE ---
Report to the Outpatient Waiting Room, entrance under the green pavilion located off [facility], at time _1230_ on date _[id number]_. Planned Procedure Time: _230pm_.? Time changes happen often and if your time is changed the preop area will call you the afternoon before. - You and your visitor will be asked to self-screen and do not enter if you have any COVID symptoms. Please call surgeon if you need to reschedule. - A mask is optional within the hospital at this time. Clear liquids only on 06-27-2024. Day of surgery may have clear liquids (water, carbonated beverages, clear teas, apple juice) until 3 hours prior to surgery with a maximum of 20 ounces. - No smoking, or chewing tobacco (or any form of nicotine). No chewing gum, candy or mints. Bisacodyl EC 2 tablets at bedtime 06-26-2024 and again at bedtime 06-27-2024. Fleets enema evening before surgery 06-27-2024 and repeat in the morning of surgery. Take only the following medications with a SIP of water on the morning of surgery: ____None___ DO NOT STOP ANY OF YOUR OTHER PRESCRIPTION MEDICATIONS PRIOR TO SURGERY EXCEPT THE FOLLOWING Hold all vitamins and supplements for 3 days per anesthesiologist. Medications to discontinue per physician Date to take last dose Please no make-up, nail bermudian, hairspray, perfume, deodorant, or body powder the day of surgery.? No jewelry (including any body piercings) or valuables the day of surgery, leave them at home.? Please take a shower or bath the night before, or the morning of, surgery with an antibacterial soap.? Wear comfortable, loose fitting clothing.? - Jewelry must be removed prior to entering the operating room.? Rings and piercings that are not removed may be cut off. - The hospital will not accept responsibility for valuables.? - Please leave all valuables, including medications, at home the day of surgery. If you are going home after surgery, a licensed bulk truck driver must drive you home.? - NO public transportation without another adult if you receive anesthesia. - We recommend that an adult stay with you for 24 hours following discharge. - We also recommend that you do not drive, make important decision, drink alcoholic beverages, or take any drugs that were not prescribed by your health care provider for at least 24 hours after your discharge time. Follow any additional instructions given to you from your surgeon. Telephone instructions given to ___Madison__and asked if any additional questions and then verbalized understanding. Patient advised to call surgeon office or pre surgery nurse liaison [phone] if any additional questions.
[2024-06-28] VITALS (10 sets, daily range): BP systolic 77–151; BP diastolic 38–85; PULSE 81–108; RESP 14–25; TEMP 36.1–36.4; O2SAT 97–100; BMI 34.9
--- OUTSIDE RECORDS SUMMARY | 2024-06-28 01:19 | XMS_ITS | Clinical Summary ---
Author Organization [facility] [employer] Address [address] [place] [address] Care Team Providers Care Blade Grader Operator Name Role Phone Unavailable Primary Care Provider Unavailabl e Source Comments [facility] [employer],non-owned Affiliates and Associated Physician Practices is amultiple site organization consisting of ambulatory clinics and hospital sitesin [place], [place], [place] and [place]. This disclosure is being madepursuant to the Care Everywhere program and may not contain all information available regarding this patient. Last updated 17.[employer] Allergies Active Allergy Reactions Criticality Noted Date Comments Nickel Rash Medium 12/23/2020 Medications * Be aware that medications may not be up to date on this document. Alwaysverify current medications with the patient. Vit-Fe Fumarate-FA ( VITAMIN) 28-0.8 MG tabletIndicatio ns: Take 1 tablet by mouth once daily Reasons: Active escitalopram (LEXAPRO) 5 MG tablet Take 5 mg by mouth once daily Active doxylamine (UNISOM) 25 MG tabletIndicatio ns:Insomnia Take 25 mg by mouth nightly as [...] from the original note were not included. ASSISTED PATIENT--PLEASE CALL [phone] (ex 2) IF TRIAGED OR ADMITTED PT NOT SEEN IN ASSISTED - TELEMEDICINE ORTHO CONSULT ONLY Care Provider: Dr. Avitia/Brayden Bentley [place] [facility] [place] consultants involved: Pediatric Orthopedics- Rich Ann Diagnosis: Unilateral left clubfoot Planned surveillance: Delivery location: planning [place] Delivery mode: Desired Delivery [place]: follow up: Please follow up in [place] [facility] 2 weeks after . To make an appointment, please call [phone]. Director Weights And Measures: Dr. Valdez at [facility] Autopsy indicated: Genetics note: Resident Service Coordinator Concerns: Care plan based on evaluation and [...] at Not on file Legal Sex Female 2:56 PM CDT Gender Identity Not on file Sexual Orientation Not on file Last Filed Vital Signs Vital Sign Reading Time Taken Comments Blood Pressure - - Pulse - - Temperature - - Respiratory Rate - - Oxygen Saturation - - Inhaled Oxygen Concentration - - Weight 107 kg (235 lb 12.8 oz) 01/21/2021 2:28 P M SALES ENABLEMENT CONSULTANT Height 170.2 cm (5' 7 ) 01/21/2021 2:28 PM SALES ENABLEMENT CONSULTANT Body Mass Index 36.93 01/21/2021 2:28 PM SALES ENABLEMENT CONSULTANT Plan of Treatment Health Maintenance Due Date Last Done Comments PAP SMEAR 1995 HEPATITIS C SCREENING 04/23/2013 DTAP/TDAP/TD VACCINES (1 - Tdap) 04/27/2014 HEPATITIS B VACCINE (1 of 3 - 19+ 3-dose series) 04/27/2014 COVID-19 VACCINE (1 - 2023-2 5 season) 2023 DEPRESSION SCREENING 02/22/2024 INFLUENZA VACCINE (Season Ended) 2024 ZOSTER VACCINE (1 of 2) 04/27/2045 HIV [...] patient's age to complete this topic Insurance [facility]
--- OUTSIDE RECORDS SUMMARY | 2024-06-28 01:19 | XMS_ITS | Clinical Summary ---
Author Organization [facility] Address [address] [place] [address] Care Team Providers Care Congregational Care Pastor Name Role Phone Juana Hernandez Primary Care Provider [phone] Allergies No known active allergies Medications Doxylamine Succinate, Sleep, (UNISOM OR) Active amphetamine-dextr oamphetamine XR (ADDERALL XR) 20 MG 24 hr capsule 30 mg. 07/07/2022 Ac tive CLOTRIMAZOLE EX Acti ve Encounters Date Type Department Care Team Description 06/05/2024 3:53 PM CDT - 06/05/2024 11:59 PM CDT Hospital Encounter [facility] [address] [address] [id number] Juana Hernandez FNP Discharge Disposition: Home or Self Care (Routine Discharge) 06/05/2024 Travel from Last 3 Months Social History Tobacco Use Types Packs/Day Years [...] Comments Annual Physical 04/27/1998 Hepatitis C 04/27/2013 Hepatitis B Vaccines (1 of 3 - 19+ 3-dose series) 04/27/2014 COVID-19 Vaccine (2023-2 5 season) 2023 Cervical Cancer Screening Pa p Smear (Age 21 to 29) Every 3 Years 06/30/2024 06/30/2021 Cervical Cancer Screening 06/30/2024 DTaP, Tdap and Td Vaccines ( 2 - Td or Tdap) 03/21/2031 03/21/2021 HPV Vaccines Aged Out No longer eligi ble based on patient's age to complete this topic Meningococcal B Vaccine Aged Out No l onger eligible based on patient's age to complete this topic Meningococcal Vaccine Aged Out No sayda larisa eligible based on patient's age to complete this topic Pneumococcal Vaccine: Pediat rics (0 to 5 Years) and At-Risk Patients (6 to 49 Years) Aged Out No longer eligi ble based on patient's age to complete this topic RSV Immunizations Under 20 Months Aged Out No longer eligible based on patient's age to complete this topic Procedures Procedure Name Priority Date/Time Associated Diagnosis Comments CT ABD+PEL WO CON Routine 06/05/2024 4:0 9 PM CDT Hydroureter Abnormal radiologic findings on diagnostic imaging of right kidney from Last 3 Months Results * CT ABD+PEL WO CON (06/05/2024 4:09 PM CDT) Anatomical Region Laterality Modality Abdomen Computed Tomogra phy 06/06/2024 8:07 AM CDT Impressions 06/06/2024 8:09 AM CDT IMPRESSION: 1. Borderline right-sided hydronephrosis despite no right stones evident 2. Several punctate nonobstructing left-sided kidney stones Ordered By: JUANA HERNANDEZ Interpreted By: Alfa Shaw MD, 06/06/2024 8:07 AM Narrative 06/06/2024 8:09 AM CDT [facility] [address] [place] [id number] CT ABDOMEN AND PELVIS WITHOUT CONTRAST Clinical history: Hydroureter. Technique: Helical images of the abdomen and pelvis were obtained without contrast. A dose lowering technique was used for this procedure, which may include, but is not limited to, dose reduction technique, automated exposure control, the use of iterative reconstruction, and ALARA (As Low As Reasonably Achievable) / Image Gently techniques. Comparison: August 24, 2022. FINDINGS: Images of the lower thorax demonstrate the visualized portion of the heart to appear normal. The lung bases are clear. Images of the abdomen demonstrate the overall size and morphology of the liver to be within normal limits. No hepatic lesions are observed. No ascites is seen. The gallbladder is present and normally distended. No stones are observed within its lumen and there is no evidence of cholecystitis or biliary obstruction. The pancreas, spleen, and adrenal glands appear grossly normal. The kidneys are normal in overall size. No stones are evident on the right, however, there is ordered by right hydronephrosis and mild prominence of the right renal pelvis and proximal ureter. The remainder of the ureter is normal in appearance. On the left several punctate stones are noted. No left-sided hydronephrosis is present. Images of the pelvis demonstrate the urinary bladder to appear normal. The uterus is normal in size and resides in an anteverted position in the mid pelvis. The adnexa appear normal. The stomach and small bowel have a normal appearance throughout. The terminal ileum and appendix appear normal. The colon is within normal limits Procedure Note Alfa Shaw MD - 06/06/2024 [facility] [address] [place] [id number] CT ABDOMEN AND PELVIS WITHOUT CONTRAST Clinical history: Hydroureter. Technique: Helical images of the abdomen and pelvis were obtained withoutcontrast. A dose lowering technique was used for this procedure, which mayinclude, but is not limited to, dose reduction technique, automatedexposure control, the use of iterative reconstruction, and ALARA (As LowAs Reasonably Achievable) / Image Gently techniques. Comparison: August 24, 2022. FINDINGS: Images of the lower thorax demonstrate the visualized portion of the heartto appear normal. The lung bases are clear. Images of the abdomen demonstrate the overall size and morphology of theliver to be within normal limits. No hepatic lesions are observed. Noascites is seen. The gallbladder is present and normally distended. Nostones are observed within its lumen and there is no evidence ofcholecystitis or biliary obstruction. The pancreas, spleen, and adrenalglands appear grossly normal. The kidneys are normal in overall size. No stones are evident on theright, however, there is ordered by right hydronephrosis and mildprominence of the right renal pelvis and proximal ureter. The remainder ofthe ureter is normal in appearance. On the left several punctate stonesare noted. No left-sided hydronephrosis is present. Images of the pelvis demonstrate the urinary bladder to appear normal. Theuterus is normal in size and resides in an anteverted position in the midpelvis. The adnexa appear normal. The stomach and small bowel have a normal appearance throughout. Theterminal ileum and appendix appear normal. The colon is within normallimits IMPRESSION: 1. Borderline right-sided hydronephrosis despite no right stones evident 2. Several punctate nonobstructing left-sided kidney stones Ordered By: JUANA HERNANDEZ Interpreted By: Alfa Shaw MD, 06/06/2024 8:07 AM Juana Hernandez SALES REPRESENTATIVES CT Final Resul t from Last 3 Months Insurance Care Teams Congregational Care Pastor Relationship Specialty Start Date End Date Juana Hernandez FNP [address] [place] [id number] PCP - General Nurse Practitioner Family 05/24/24
--- OUTSIDE RECORDS SUMMARY | 2024-06-28 01:19 | XMS_ITS | Data Portability ---
Author Organization [facility] Address [address] [place] [address] Care Team Providers Care Bankruptcy Legal Assistant Name Role Phone [facility] Primary Care Provider Assessment No assessment recorded. Plan of Treatment Reminders Order Date Submit Date Provider Last Modified By Organization Details Last Modified Time Details Appointments None recorded. Lab test, urine 2023 024 [email or web address] 1 [place] [facility] [address], [address], [place], [address], 4 10:29:43 beta-HCG, quantitativ e, serum or plasma 2023 024 [facility] (Lab), [address], [place], [address], 4 03:44:[address] referral 2023 024 [email or web address] Mavis Ahumada MD, [address] [place], [address], 4 10:55:41 Procedures None recorded. Surgeries None recorded. Imaging None recorded. Medication Orders nystatin 100,000 unit/gram topical ointment 2023 024 [email or web address] [facility] #[id number], [address], [place], [id number], 4 11:09:32 triamcinolo ne acetonide 0.1 % topical ointment 2023 024 [id number], [address], [place], [id number], 4 11:09:37 clobetasol 0.05 % topical ointment 2023 024 [id number], [address], [place], [id number], 4 10:22:55 Patient TargetsNo targets recorded. Patient InstructionsNo instructions recorded. Reason for Referral Chief Deputy Referral for P ruritic rash Referring Physician: Florecita Owens, FIELD ARTILLERY RADAR OPERATOR, Encounter Date: 07/26/2023 Results Created Date Observation Date Name Description Value Unit Range Abnormal Flag Note LastModifiedBy Organization Detail LastModifiedTime 07/08/19 24 07/08/2023 SURGI VICKY PATHO LOGY surgical pathology SEE RESULT S BELOW CASE REPOR T: Surgi vicky Patho logy Repor t Case: [id number] Autho brijesh worthington Provi celina: Eduin Yu Colle cted: 07/07 1529 NETWORK SPECIALIST Order ing Locat ion: [place] Patho logy [...] ed by Nigel Lewis on Not Available [facility] (Lab) [address], [place], [address], 07/11/2023 12:59:52 07/26/19 24 07/26/2023 CULTU RE: AEROB IC/AN AEROB IC culture: aerobic/anae robic CANCEL LU Castro ered Not Available [facility] (Lab) [address], [place], [address], 07/27/2023 06:06:01 07/26/19 24 07/26/2023 CT/GC AND TRICH OMONA S VAGIN MASON (RRNA ), SWAB chlamydia trachomatis, PCR Negati ve negati ve Not Available [facility] (Lab) [address], [place], [address], 07/30/2023 16:44:40 07/26/19 24 07/26/2023 CT/GC AND TRICH OMONA S VAGIN MASON (RRNA ), SWAB neisseria gonorrhoeae, PCR Negati ve negati ve Not Available [facility] (Lab) [address] [place], [address], 07/30/2023 16:44:40 07/26/19 24 07/26/2023 CT/GC AND TRICH OMONA S VAGIN MASON (RRNA ), SWAB trichomonas vaginalis ribosomal RNA (rrna) Negati ve negati ve Not Available [facility] (Lab) [address], [place], [address], 07/30/2023 16:44:40 07/26/19 24 07/26/2023 CULTU RE: GENIT AL result report SEE RESULT S BELOW Test: Cultu re: Genit al Speci men Sourc e: Vagin a Speci men Type: Swab Speci men Date: 024 2:41 PM Resul t Date: 024 3:41 PM Resul t Statu s: Final resul t Resul ting Lab: [facility] [address] [facility] [address] Tel: CULTU RE ----- ----- ----- --- No Neiss eria gonor rhoea e isola jaqueline Heavy Growt h Inez l Vagin al Dexter STAIN ----- ----- ----- --- Alter ed vagin al dexter , indet ermin ate for bacte rial vagin osis Not Available [facility] (Lab) [address], [place], [address], 07/30/2023 16:44:40 12/05/19 24 12/05/2023 BHCG, QUANT ITATI VE B-HCG <0.2 mIU/m L This assay was perfo rmed using [employer] Corpo ratio n reage nts and test kits. Value s obtai chuy with other assay metho ds or kits canno t be used inter [facility] eably . Refer ence Range s: Non-p [...] Weeks 8,099 - 58,17 6 Not Available [facility] (Lab) [address], [place], [address], 12/06/2023 05:08:19 12/09/19 24 12/09/2023 ANTIM ALBERT [...] actur es canno t be used inter [facility]. Not Available [facility] (Lab) [address], [place], [address], 12/19/2023 14:39:03 12/09/19 24 12/09/2023 DHEA SULFA TE DHEA-sulfate 85 ug/dL Femal e Range s Age(y ) Range (ug/d L) 10-15 34-28 0 15-20 65-36 8 20-25 148-4 07 25-35 99-34 0 35-45 61-33 7 45-55 35-25 6 55-65 19-20 5 65-75 9-246 > 75 12-15 4 Not Available [facility] (Lab) [address], [place], [address], 12/19/2023 14:39:03 12/09/19 24 12/09/2023 ESTRA DIOL estradiol 91.4 pg/mL This assay was perfo rmed using [employer] Corpo ratio n reage nts and test kits. Value s obtai chuy with other assay metho ds or kits canno t be used inter [facility] . Femal e Estra diol Range s: Folli cular phase 12.4- 233 pg/mL Ovula tion phase 41.0- 398 pg/mL Lutea l phase 22.3- 341 pg/mL Postm enopa usal <5-13 8 pg/mL Healt hy Pregn ant Women 1st Trime ster 154-3 243 pg/mL 2nd Trime ster 1561- 48848 pg/mL 3rd Trime ster 8525- >3000 0 pg/mL Not Available [facility] (Lab) [address], [place], [address], 12/19/2023 14:39:04 12/09/19 24 12/09/2023 PROGE STERO [...] Trime ster 58.70 -214. 00 Not Available [facility] (Lab) [address], [place], [address], 12/19/2023 14:39:04 12/09/19 24 12/09/2023 PROLA CTIN prolactin, total 13.10 NG/mL 4.79-2 3.30 This assay was perfo rmed using [employer] Corpo ratio n reage nts and test kits. Value s obtai chuy with other assay metho ds or kits canno t be used inter [facility] . Not Available [facility] (Lab) [address], [place], [address], 12/19/2023 14:39:04 12/09/19 24 12/09/2023 LH (LUTE NIZIN G HORMO NE) LH 14.2 mIU/m L This assay was perfo rmed using [employer] Corpo ratio n reage nts and test kits. Value s obtai chuy with other assay metho ds or kits canno t be used inter [facility] . Femal es Mid-F ollic ular: 2.4-1 2.6 mIU/m L Mid-C ycle: 14.0- 95.6 mIU/m L Mid-L uteal : 1.0-1 1.4 mIU/m L Postm enopa use: 7.7-5 8.5 mIU/m L Not Available [facility] (Lab) [address], [place], [address], 12/19/2023 14:39:05 12/09/19 24 12/09/2023 FSH FSH 2.4 mIU/m L This assay was perfo rmed using [employer] Corpo ratio n reage nts and test kits. Value s obtai chuy with other assay metho ds or kits canno t be used inter [facility] . Femal es Folli cular : 3.5-1 2.5 mIU/m L Ovula tion: 4.7-2 1.5 mIU/m L Lutea l: 1.7-7 .7 mIU/m L Postm enopa use: 25.8- 134.8 mIU/m L Not Available [facility] (Lab) [address], [place], [address], 12/19/2023 14:39:05 12/09/19 24 12/09/2023 HUMAN SEX HORMO NE RJ NG GLOBU ANITA sex hormone binding globulin 40.2 nmole s/L 18.2-1 35.5 Not Available [facility] (Lab) [address] [place], [address], 12/19/2023 14:39:05 12/09/19 24 12/09/2023 TSH, REFLE X FREE T4 TSH 2.60 uIU/m L 0.30-5 .33 Not Available [facility] (Lab) [address] [place], [address], 12/19/2023 14:39:06 12/09/19 24 12/09/2023 HEMOG LOBIN [...] >8.0% Actio n sugge sted Not Available [facility] (Lab) [address], [place], [address], 12/19/2023 14:39:06 12/09/19 24 12/09/2023 17-OH PROGE [...] cteri stics have been deter mined by [employer]reads [employer]. It has not been clear ed or appro marek by FDA. This assay has been valid ated pursu ant to the CLIA regul ation s and is used for clini vicky purpo ses. Perfo rming Organ izati on Maryamr hiren n: Site ID: EZ Name: creads ostic s/Talon germain [facility] [place] , Addre ss: [id number] [address] [place] [address] Direc tor: Mirna spencer MD,Ph D,TAYLER Not Available [facility] (Lab) [address], [place], [address], 12/19/2023 14:39:06 12/09/19 24 12/09/2023 TESTO STERO NE, FREE( DIALY SIS) AND TOTAL (LC/M S/MS) testosterone , total 56 NG/dL 2-45 high For addit ional infonora flores e refer to http: //[facility] lisa valentine.que stdia gnost ics.c om/fa [...] for clini vicky purpo ses. Not Available [facility] (Lab) [address] , [place], [address], 12/19/2023 14:39:06 12/09/19 24 12/09/2023 TESTO STERO NE, FREE( DIALY SIS) AND TOTAL (LC/M S/MS) testosterone , free 5.6 pg/mL 0.1-6. 4 This test was devel oped and its sha tical perfo rmanc e castro cteri stics have been deter mined by [facility] die[facility] s Aneudy huerta Rusti [place]. It has not been clear ed or appro marek by the U.S. Food and Drug Admin istra tion. This assay has been valid ated pursu ant to the CLIA regul ation s and is used for clini vicky purpo ses. Perfo rming Organ izati on Infor sonyaio n: Site ID: AMD Name: [facility] ostgorge troncoso Addre ss: [id number] [place], [place] Direc tor: Rashawn Gallardo MD PhD Not Available [facility] (Lab) [address] , [place], [address], 12/19/2023 14:39:06 12/09/19 24 12/09/2023 CORTI KATE, [...] L after IM injec tion Not Available [facility] (Lab) [address] , [place], [address], 12/19/2023 14:39:07 12/09/19 24 12/09/2023 CORTI KATE, [...] cteri stics have been deter mined by [employer]. It has not been clear ed or appro marek by FDA. This assay has been valid ated pursu ant to the CLIA regul ation s and is used for clini vicky purpo ses. Perfo rming Organ izati on Infor matio n: Site ID: EZ Name: creads ostic s/Talon [facility] [place] , Addre ss: [id number] [address] [facility] [place] [address] Direc tor: Mirna spencer MD,Ph D,TAYLER Not Available [facility] (Lab) [address], [place], [address], 12/19/2023 14:39:07 12/21/19 24 12/21/2023 BHCG, QUANT ITATI VE B-HCG 23.5 mIU/m L This assay was perfo rmed using [employer] o[employer] Corpo ratio n reage nts [...] Weeks 8,099 - 58,17 6 Not Available [facility] (Lab) [address], [place], [address], 12/22/2023 03:44:51 12/21/19 24 12/21/2023 pregn brit test, urine HCG positi ve Not Available [place] [address], [place], [address], 12/21/2023 10:29:20 01/06/20 24 01/06/2024 BHCG, QUANT [...] Weeks 8,099 - 58,17 6 Not Available [facility] (Lab) [address], [place], [address], 01/07/2024 05:03:21 01/13/20 24 01/13/2024 BHCG, QUANT [...] Weeks 8,099 - 58,17 6 Not Available [facility] (Lab) [address], [place], [address], 01/14/2024 06:30:27 05/19/19 25 05/18/2024 PROGE STERO NE progesterone CANCEL LED Excee ded Stabi lity Not Available [facility] (Lab) [address] [place], [address], 05/24/2024 02:08:19 05/19/19 25 05/18/2024 ESTRA DIOL estradiol CANCEL LED Excee ded Stabi lity Not Available [facility] (Lab) [address] [place], [address], 05/24/2024 02:08:21 05/19/19 25 05/18/2024 HEMOG LOBIN A1C hemoglobin A1C 5.4 % 4.0-5. 6 The Ameri can Diabe maryuri Assoc iatio n recom mends that a prima ry goal of thera py darionul d be a HBA1C of < 7% and that physi cians shoul d reeva luate the treat ment regim en in patie nts with HBA1C value s consi stent ly > 8%. <5.7% Inez l 5.7 - 6.4% Incre ased risk for diabe maryuri >=6.5 % Diagn ostic of diabe maryuri <7.0% Goal of thera py >8.0% Actio n sugge sted Not Available [facility] (Lab) [address], [place], [address], 05/28/2024 11:43:39 05/19/19 25 05/18/2024 FSH FSH 2.3 mIU/m L This assay was perfo rmed using [employer] Corpo ratio n reage nts and test kits. Value s obtai chuy with other assay metho ds or kits canno t be used inter [facility] . Femal es Folli cular : 3.5-1 2.5 mIU/m L Ovula tion: 4.7-2 1.5 mIU/m L Lutea l: 1.7-7 .7 mIU/m L Postm enopa use: 25.8- 134.8 mIU/m L Not Available [facility] (Lab) [address] [place], [address], 05/28/2024 11:43:40 05/19/19 25 05/18/2024 PROLA CTIN prolactin, total 13.50 NG/mL 4.79-2 3.30 This assay was perfo rmed using [employer] Corpo ratio n reage nts and test kits. Value s obtai chuy with other assay metho ds or kits canno t be used inter [facility] eay . Not Available [facility] (Lab) [address], [place], [address], 05/28/2024 11:43:41 05/19/19 25 05/18/2024 LH (LUTE NIZIN G HORMO NE) LH 6.8 mIU/m L This assay was perfo rmed using [employer] Corpo ratio n reage nts and test kits. Value s obtai chuy with other assay metho ds or kits canno t be used inter [facility] eably . Femal es Mid-F ollic ular: 2.4-1 2.6 mIU/m L Mid-C ycle: 14.0- 95.6 mIU/m L Mid-L uteal : 1.0-1 1.4 mIU/m L Postm enopa use: 7.7-5 8.5 mIU/m L Not Available [facility] (Lab) [address], [place], [address], 05/28/2024 11:43:45 05/19/19 25 05/18/2024 HUMAN SEX HORMO NE RJ NG GLOBU ANITA sex hormone binding globulin 39.3 nmole s/L 18.2-1 35.5 Not Available [facility] (Lab) [address], [place], [address], 05/28/2024 11:43:46 05/19/19 25 05/18/2024 TSH, REFLE X FREE T4 TSH 3.11 uIU/m L 0.30-5 .33 Not Available [facility] (Lab) [address] [place], [address], 05/28/2024 11:43:47 05/19/19 25 05/18/2024 DHEA SULFA TE DHEA-sulfate 85 ug/dL Femal e Range s Age(y ) Range (ug/d L) 10-15 34-28 0 15-20 65-36 8 20-25 148-4 07 25-35 99-34 0 35-45 61-33 7 45-55 35-25 6 55-65 19-20 5 65-75 9-246 > 75 12-15 4 Not Available [facility] (Lab) [address], [place], [address], 05/28/2024 11:43:48 05/19/1905/18/2024 TESTO STERO NE, FREE( DIALY SIS) AND TOTAL (LC/M S/MS) testosterone , total 31 NG/dL 2-45 For addit ional infor nora charlton e refer to http: //[facility] lisa valentine.que stdia gnost ics.c om/fa q/ Total Testo stero neLCM SMSFA Q165 (This link is being provi ded for infor matio nal/ educa richi l purpo ses only. ) This test was devel oped and its sha tical perfo rmanc e castro cteri stics have been deter mined by creads ostic s [employer] [place], [place]. It has not been clear ed or appro marek by the U.S. Food and Drug Admin istra tion. This assay has been valid ated pursu ant to the CLIA regul ation s and is used for clini vicky purpo ses. Not Available [facility] (Lab) [address], [place], [address], 06/11/2024 03:23:47 05/19/19 25 05/18/2024 TESTO STERO NE, FREE( DIALY SIS) AND TOTAL (LC/M S/MS) testosterone , free 4.5 pg/mL 0.1-6. 4 This test was devel oped and its sha tical perfo rmanc e castro cteri stics have been deter mined by creads ostic s [employer] [place], [place]. It has not been clear ed or appro marek by the U.S. Food and Drug Admin istra tion. This assay has been valid ated pursu ant to the CLIA regul ation s and is used for clini vicky purpo ses. Perfo rming Organ izati on [facility] n: Site ID: AMD Name: creads ostic s Aneudy ls QBInternationali karyna Addre ss: [id number] [place], [place] Direc tor: Rashawn Gallardo MD PhD Not Available [facility] (Lab) [address] [place], [address], 06/11/2024 03:23:47 05/24/19 25 05/23/2024 PROGE STERO NE progesterone 9.75 NG/mL This assay was perfo rmed using [employer] Corpo ratio n reage nts and test kits. Value s obtai chuy with other assay metho ds or kits canno t be used inter [facility] eay . Femal e Proge stero ne Range s: Folli cular phase 0.06- 0.89 ng/mL Ovula tion phase 0.12- 12.00 ng/mL Lutea l phase 1.83- 23.90 ng/mL Postm enopa usal <0.05 -0.13 ng/mL Healt hy Pregn ant Women 1st Trime ster 11.0- 44.30 2nd Trime ster 25.40 -83.3 0 3rd Trime ster 58.70 -214. 00 Not Available [facility] (Lab) [address] [place], [address], 05/28/2024 14:13:01 05/24/19 25 05/23/2024 ESTRA DIOL estradiol 150.0 pg/mL This assay was perfo rmed using [employer] Corpo ratio n reage nts and test kits. Value s obtai chuy with other assay metho ds or kits canno t be used inter [facility] . Femal e Estra diol Range s: Folli cular phase 12.4- 233 pg/mL Ovula tion phase 41.0- 398 pg/mL Lutea l phase 22.3- 341 pg/mL Postm enopa usal <5-13 8 pg/mL Healt hy Pregn ant Women 1st Trime ster 154-3 243 pg/mL 2nd Trime ster 1561- 51379 pg/mL 3rd Trime ster 8525- >3000 0 pg/mL Not Available [facility] (Lab) [address] [place], [address], 05/28/2024 14:13:02 01/04/20 24 01/04/2024 US, obste tric, 1st trime ster No observ ation record ed. [email or web address] [facility] [address], [place], [address], 01/04/2024 17:55:07 05/26/19 25 05/10/2024 US, pelvi s, compl ete No observ ation record ed. [email or web address] [facility] [address], [place], [address], 06/01/2024 18:28:53 Result Notes None recorded. Problems Name Problem SNOMED Code Status Onset Date Resolution Date Notes Provider Name and Address Organization Details Recorded Time Pregnanc y, childbir th and puerperi um finding Completed 201807/28/2020 Encounte r for supervis ion of normal 1st pregnanc y;Record ed Elsewher e: No Locat ion: Felicia mi [facility] S ource: EHR Journeyman Operator Assistant talon: N Practi ce ID: 0001 Xander lable Time: 03:00:00 PM Judy ferrari [facility] 11:33:07 Uterine size for dates discrepa ncy Completed 201807/28/2020 Uterine size-nanette e discrepa ncy, third trimeste r;Practi ce ID: 0001 Judy ferrari, [facility] 11:33:00 Gestatio n period, 38 weeks [id number] Completed 201807/28/2020 38 weeks gestatio n of pregnanc y;Practi ce ID: 0001 Judy ferrari [facility] 11:32:27 Lacerati on of female perineum Completed 201807/28/2020 First degree perineal lacerati on during delivery ;Practic e ID: 0001 Judy ferrari [facility] 11:32:49 Obesity in mother complica ting childbir [id number] Completed 201807/28/2020 Obesity complica leanne godwin ;Pract ice ID: 0001 Judy ferrari, [facility] 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 11:32:23 Single live from singleto n pregnanc y [id number] Completed 201807/28/2020 Single live ;Pr actice ID: 0001 Judy ferrari, [facility] 11:32:33 Pregnanc y detectio n examinat ion Completed 201807/28/2020 Encounte r for pregnanc y test, result positive ;Practic e ID: 0001 Judy ferrari, [facility] 11:33:24 Gestatio n period, 8 weeks [id number] Completed 201807/28/2020 8 weeks gestatio n of pregnanc y;Practi ce ID: 0001 Judy ferrari, [facility] 11:33:04 Normal pregnanc y in multigra joanne [id number] 4106 Completed 201807/28/2020 Encounte r for suprvsn of normal pregnanc y, first trimeste r;Practi ce ID: 0001 Judy Benítez vega, [facility] 11:33:15 Antenata l screenin g Completed 201807/28/2020 Encounte r for other specifie d antenata l screenin g;Practi ce ID: 0001 Judy Benítez vega, [facility] 11:32:59 Antenata l screenin g for malforma tion Completed 201807/28/2020 Encounte r for antenata l screenin g for malforma tions;Pr actice ID: 0001 Judy ferrari, [facility] 11:33:22 Pregnanc y, childbir th and puerperi um finding Completed 201807/28/2020 Encntr for suprvsn of normal first preg, third trimeste r;Practi ce ID: 0001 Judy ferrari, [facility] 11:33:09 Gestatio n period, 34 weeks [id number] Completed 201807/28/2020 34 weeks gestatio n of pregnanc y;Practi ce ID: 0001 Judy ferrari, [facility] 11:32:25 Irregula r periods [id number] Completed 201407/28/2020 Irregula r periods; Recorded Elsewher e: No Locat ion: [facility] S ource: EHR Journeyman Operator Assistant talon: N Practi ce ID: 0001 Xander lable Time: 11:00:00 AM Judy ferrari [facility] 11:33:25 Depressi ve disorder [id number] Completed 201407/28/2020 Depressi on;Recor ded Elsewher e: No Locat ion: [facility] S ource: EHR Journeyman Operator Assistant talon: N Practi ce ID: 0001 Xander lable Time: 11:00:00 AM Judy ferrari [facility] 11:33:12 Speciali zed medical examinat ion Completed 201107/28/2020 Routine gynecolo gical examinat ion;Prac dory ID: 0001 [facility] 11:33:19 Screenin g for malignan t neoplasm of cervix Completed 201107/28/2020 Pap Smear;Pr actice ID: 0001 [facility] 11:32:35 Varicose veins of vulva [id number] Completed 201107/28/2020 Vulval varices; Practice ID: 0001 [facility] 11:33:17 Irregula r intermen strual bleeding [id number] Completed 201407/28/2020 Metrorrh agia;Pra ctice ID: [address] [facility] 11:33:21 Pregnanc y test negative [id number] Completed 201407/28/2020 Negative Pregnanc y Test;Pra ctice ID: 0001 Judy Benítez [facility] 11:33:[address] Concept Completed 201807/28/2020 Encntr for plasma processing centrifuge operator exam (general ) (routine ) w/o abn findings ;Practic e ID: 0001 [facility] 11:33:05 Infectio n screenin g Completed 201807/28/2020 Encounte r for screenin g for oth infec/pa rastc diseases ;Recorde d Elsewher e: No Locat ion: [facility] S ource: EHR Journeyman Operator Assistant talon: N Practi ce ID: 0001 Xander lable Time: 11:15:00 AM [facility] 11:32:57 Lochia finding Completed 201807/28/2020 Encounte r for routine postpart um follow-u p;Record ed Elsewher e: No Locat ion: [facility] S ource: EHR Journeyman Operator Assistant talon: N Anayeliti ce ID: 0001 Xander lable Time: 01:00:00 PM Judy ferrari, [facility] 1 11:33:11 Body mass index 25-29 - overweig ht [id number] Completed 201807/28/2020 Body mass index (BMI) 28.0-28. 9, adult;Re corded Elsewher e: No Locat ion: [place] [facility]: N Anayeliti ce ID: 0001 Xander lable Time: 11:15:00 AM Judy ferrari, [facility] 11:32:31 Secondar y amenorrh ea [id number] Completed 201807/28/2020 Secondar y amenorrh ea;Recor ded Elsewher e: No Locat ion: [place] [facility]ce[facility] tal[facility]: N Anayeliti ce ID: 0001 Xander lable Time: 11:15:00 AM Judy ferrari, [facility] 11:32:30 Syphilis test finding [id number] Completed 201807/28/2020 Encntr screen for infectio ns w sexl mode of transmis s;Record ed Elsewher e: No [facility] talon: N Anayeliti ce ID: 0001 Xander lable Time: 11:15:00 AM Judy ferrari, [facility] 1 11:33:14 Pregnanc y [id number] Completed 202006/03/2021 Martha Liriano hl null, [facility] 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 2 08:11:02 Nausea [id number] Completed unisom Martha nicholson null, [facility] 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 - no further f/u, rec 32wk u/s for growth; Per Peds Ortho to f/u 2 weeks after delivery . Martha Liriano null, [facility] 2 23:18:40 Disorder of amniotic cavity AND/OR membrane [id number] Completed Possible separati on of amnion and chorion or band. Martha nicholson null, [facility] 2 23:18:40 COVID-19 [id number] Completed 2021 ASA & serial growth Martha nicholson null, [facility] 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 4 10:23:18 Mixed anxiety and depressi ve disorder 642702554 Active 2023 Francisca Webb [facility], [facility] 4 10:23:36 Problem Notes None recorded. Procedures Surgical History Date Name Laterality Status Provider Name and Address Organization Details Recorded Time 4 biopsy of perianal tissue completed Francisca Webb [facility] 12/21/2023 10:26:04 4 Vulvar Biopsy completed MARIN Lara- [address], [place], [address], [facility] 07/14/2023 10:36:57 2 Date of Last Pap Smear completed Antonietavik Jay [facility] 07/06/2023 10:32:10 6 incision of ingrown nail completed Francisca Webb [facility] 12/21/2023 10:26:41 Imaging Results Imaging Date Name Status LastModified by Organiz ation Details LastModified Time 01/04/2024 US, obstetric, 1st trimester completed [address] [place] [address], [address], 01/04/2024 17:55:07 05/10/2024 US, pelvis, complete completed [address], [address], 06/01/2024 18:28:53 Procedure Notes None recorded. Medical Equipment None Reported. Allergies Allergen ID Allergen Name Allergen Category Reaction Reaction Severity Criticality Documentation Date Start Date Code Code System Note Provider Name and Address Organization Details Recorded Time 9880 nickel environme nt Not available Not available Not available 02/08/2020 03570 29 RxNorm Judy ferrari, [facility] 1 11:33:39 Medications Name Sig Start [...] route every day 02/28 completed Prescrib ed [facility] e: No Locat ion: [facility] M odify By: [email or web address] Encount er DateTime : 10/04/19 11:45:00 AM Not Available Not Available Not [...] iron-800 mcg tablet 07/28 completed Prescrib ed Elsewher e: Yes Loca tion: [facility] M odify By: [email or web address] Encount er DateTime : 02/28/19 11:15:00 AM Not Available Not Available Not Available Vitals Date Recorded Body height Body mass index (BMI) Body weight Systolic blood pressure Diastolic blood pressure Provider Name and Address Organization Details Last Updated DateTime 07/06/2023 170.18 cm 34.1 kg/m2 71732.14 g 108 mm[Hg] 74 mm[Hg] Antonieta Jay PA - [facility] 4 10:27:19 Date Recorded Body height Body mass index (BMI) Body weight Systolic blood pressure Diastolic blood pressure Provider Name and Address Organization Details Last Updated DateTime 07/08/2023 170.18 cm 33.8 kg/m2 96452.95 g 113 mm[Hg] 57 mm[Hg] Mara [facility] 4 11:09:06 Date Recorded Body height Body mass index (BMI) Body weight Systolic blood pressure Diastolic blood pressure Provider Name and Address Organization Details Last Updated DateTime 07/13/2023 170.18 cm 33.8 kg/m2 90273.95 g 119 mm[Hg] 84 mm[Hg] Magdalene Carrasco [facility] 4 11:24:16 Date Recorded Body height Body mass index (BMI) Body weight Systolic blood pressure Diastolic blood pressure Provider Name and Address Organization Details Last Updated DateTime 07/26/2023 170.18 cm 33.8 kg/m2 61106.95 g 110 mm[Hg] 73 mm[Hg] Mara [facility] 4 11:09:00 Date Recorded Body height Body mass index (BMI) Body weight Systolic blood pressure Diastolic blood pressure Provider Name and Address Organization Details Last Updated DateTime 12/21/2023 170.18 cm 34.3 kg/m2 27709.73 g 112 mm[Hg] 73 mm[Hg] Francisca Webb [facility] 4 10:22:31 Social History Question Answer Notes LastModified by Organizat ion Details LastModified Time Tobacco Smoking Status Former Smoker Judy ferrari [facility] 07/28/2020 12:22:00 What Is Your Level Of Alcohol Consumption? Occasional [email or web address] Information not available 11/24/2020 If You Are , What Was Your Level Of Alcohol Consumption Prior To ? None Information not available 11/24/2020 Are You Blind Or Do You Have Difficulty Seeing? No [email or web address] Information not available 11/24/2020 What Is Your Level Of Caffeine Consumption? Occasional [email or web address] Information not available 11/24/2020 In The 14 Days Before Symptom Onset, Have You Had Close Contact With A Laboratory-confir med COVID-19 While That Case Was Ill? No [email or web address] Information not available 11/24/2020 In The 14 Days Before Symptom Onset, Have You Had Close Contact With A Person Who Is Under Investigation For COVID-19 While That Person Was Ill? No [email or web address] Information not available 11/24/2020 Have You Been To An Area Known To Be High Risk For COVID-19? No [email or web address] Information not available 11/24/2020 Are You Deaf Or Do You Have Serious Difficulty Hearing? No [email or web address] Information not available 11/24/2020 What Type Of Diet Are You Following? REGULAR [email or web address] Information not available 11/24/2020 Do You Use Your Seat Belt Or Car Seat Routinely? Yes [email or web address] Information not available 11/24/2020 Do You Have Smoke And Carbon Monoxide Detectors In Your Home? Yes [email or web address] Information not available 11/24/2020 Do You Feel Stressed (tense, Restless, Nervous, Or Anxious, Or Unable To Sleep At Night)? [id number] Information not available 11/24/2020 Do You Use Any Illicit Or Recreational Drugs? No [email or web address] Information not available 11/24/2020 Do You Use Sunscreen Routinely? Yes [email or web address] Information not available 11/24/2020 Has Tobacco Cessation Counseling Been Provided? No [email or web address] Information not available 11/24/2020 Do You Or Have You Ever Used Any Other Forms Of Tobacco Or Nicotine? No [email or web address] Information not available 11/24/2020 Sex: Unknown Functional Status Question Answer Note LastModified by Organizat ion Details LastModified Time Do you have difficulty walking or climbing stairs? No [email or web address] Information not available 05/07/2021 Are you able to walk? YESWOREST [email or web address] Information not available 11/24/2020 Are you able to care for yourself? Yes [email or web address] Information not available 05/07/2021 Do you have difficulty dressing or bathing? No [email or web address] Information not available 05/07/2021 What is your exercise level? Occasional [email or web address] Information not available 11/24/2020 Mental Status None recorded. Family History Relationship Description Onset Age of this Age Resolved Age Notes LastModified by Organization Details LastModified Time Father Diabetes mellitus [email or web address] Not available 2020 12:20:15 Maternal Grandmother Cyst of ovary [email or web address] Not available 2020 12:20:39 Mother Polycystic ovary syndrome Not available 2020 12:20:48 Mother Cyst of ovary Not available 2020 12:20:52 Paternal Grandfather Diabetes mellitus [email or web address] Not available 2020 12:21:09 Paternal Grandmother Malignant tumor of breast [email or web address] Not available 2020 12:21:20 Sister Cyst of ovary [email or web address] Not available 2020 12:21:48 Sister Polycystic ovary syndrome Not available 2020 12:21:51 Maternal Grandfather Malignant neoplasm of lung [email or web address] Not available 07/07 11:21:38 Medical History Condition Response Allergies (Food, seasonal, environmental ) N Other Y Drug/Latex Allergies/Reactions Y Blood Transfusion N Breast Cancer N Dermatologic Disorders N Lung Disease N Defects or Inherited Disease N Breast Problem N Gestational Diabetes N Hematologic disorders N Anesthesia Complications N History of STI N Deep Vein Thrombosis N Polycystic ovary syndrome N Anxiety Disorder Y Autoimmune disease N Arthritis N Polyps N Infertility N Acid Reflux (GERD) N History of abnormal pap N Cancer N Varicosities N Stroke N Neurologic/Epilepsy Y Endometriosis N High Cholesterol N Fibromyalgia N Headaches N Kidney Disease N Heart Problems N Thyroid Problems N Kidney or Bladder Problems N GI Problems N Eating Disorder [...] Recorded Time Tdap 03/21/2021 completed Antonieta Jay [facility] 07/06/2023 10:27:29 Past Encounters Encounter ID Performer Location Encounter Start Date Encounter Closed Date Diagnosis/Indication Diagnosis SNOMED-CT Code Diagnosis ICD10 Code Diagnosis Note [id number] Kina Bentley CNM [facility] [address] [address] 09/22/2020 14:00:37 09/23/2020 16:18:16 test positive 514317323 Z32.01 Risk factors addressed: Tobacco Cessation, Safe [...] cf/sma/nip t. Handouts given and discussed with patient. ildbirth classes recommende d.New OB sheet given.If previous , counseling .Pt verbalizes that she understand s the importance of above instructio ns.All questions were answered.P atient reminded to have annual well woman examinatio n and address [facility] . 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 [id number] Merlyn Simeon MD [facility] [address],[place] [address] 11/24/2020 11:02:52 11/24/2020 12:57:26 Vanishing twin syndrome 272631157 O31.12X2 Z3A.15 Routine an tenatal care 438713272 Z34.91 [id number] Merlyn Simeon MD [facility] [address],[place] [address] 11/24/2020 10:56:28 11/24/2020 12:00:49 Vanishing twin syndrome 831588426 O31.12X2 Z3A.15 [id number] Kina Bentley CNM [facility] [address],[place] [address] 12/22/2020 09:57:32 12/23/2020 11:01:35 Routine care 312685273 Z34.92 [id number] Cooper Avitia MD [facility] [address],[place] [address] 12/22/2020 09:56:47 12/22/2020 11:29:19 screening for malformation 755664206 Z36.3 [id number] Kina Bentley CNM [facility] [address],[place] [address] 01/06/2021 16:41:04 01/08/2021 13:41:38 Urinary symptoms 908642151 R39.9 [id number] Kina Bentley CNM [place] [address],[place] [address] 01/20/2021 10:08:43 01/20/2021 11:48:20 Routine care 006984215 Z34.92 [id number] Kina Bentley [facility] [address],[place] [address] 02/16/2021 09:34:34 02/16/2021 09:55:47 Routine care 596519344 Z34.92 [id number] Kina Bentley [facility] [address],[place] [address] 03/09/2021 10:15:02 03/09/2021 10:49:35 Routine care 084497495 Z34.92 [id number] Kina Bentley [facility] [address],[place] [address] 03/18/2021 10:33:15 03/18/2021 11:29:02 Routine care 567874715 Z34.92 [id number] Cooper Avitia MD [facility] [address],[place] [address] 03/18/2021 10:27:53 03/18/2021 11:09:29 Pre-existing maternal disease complicating 0031707787 6106 O99.891 U07.1 Z3A.32 [id number] Kina Bentley [facility] [address],[place] [address] 03/30/2021 10:01:25 03/30/2021 11:38:04 Routine care 430644696 Z34.92 [id number] Kina Bentley [facility] [address],[place] [address] 04/13/2021 16:57:46 04/13/2021 18:24:05 Routine care 310315929 Z34.92 [id number] Cooper Avitia MD [facility] [address],[place] [address] 04/13/2021 16:57:20 04/13/2021 17:36:22 Disease of the respiratory system complicating , childbirth and/or the puerperium 774950390 O99.893 U07.1 Z3A.35 [id number] Cooper Avitia MD [facility] [address],[place] [address] 04/20/2021 15:58:18 04/20/2021 16:17:40 Polyhydramnios 87501300 O40.3XX0 Z3A.36 [id number] Kina Bentley [facility] [address],[place] [address] 04/20/2021 15:59:38 04/20/2021 18:14:46 Routine care 776315699 Z34.92 [id number] Kina Bentley [place] [address] [address] 2021 13:57:25 2021 15:51:41 Routine care 552929545 Z34.92 [id number] Cooper Avitia MD [place] [address],[place] [address] 2021 13:57:05 2021 14:56:27 Polyhydramnios 97246590 O40.3XX0 Z3A.37 [id number] Patti Molina [facility] [address],[place] [address] 05/07/2021 10:45:11 05/07/2021 11:34:39 Routine care 191033404 Z34.93 [id number] Kina Bentley [facility] [address],[place] [address] 06/08/2021 16:06:04 06/09/2021 16:58:29 state 39934461 Z39.2 Continue to watch for signs/symp toms [...] today's plan if desired External hemorrhoids 239 35741 K64.4 [id number] Kina Bentley [facility] [address],[place] [address] 06/30/2021 15:36:28 07/01/2021 17:03:30 Gynecologic examination 72260512 Z01.419 Z11.51 Take Calcium with Vitamin D [...] paper copy of today's plan if desired. [id number] Patti Molina [facility] [address],[place] [address] 07/06/2023 10:19:16 07/06/2023 11:57:11 Vaginal irritation 755449684 N89.8 clobetasol bid x 2 weeks, ok for crisco/melanie onut oil, plan biopsy in 2 weeks Rectal irritation 296720 002 K62.89 [id number] Florecita Owens [facility] [address],[place] [address] 07/08/2023 10:58:55 07/14/2023 15:08:59 Itching of skin 224636593 L29.9 Perianal rectal itching for multiple months and is now getting worse.[facility] h biopsy completed (see procedure notes) [id number] Florecita Owens [facility] [address] [address] 07/13/2023 11:20:50 07/13/2023 11:46:01 Skin lesion 17657125 L98.9 Follow up to skin biopsy for perianal itching/sk in discolorat ion.Healin g well; small piece of skin at edge of biopsy border; still open but no drainage or erythema.W ill take abx and hopefully this can also help speed healing. Itching of skin 81129295 0 L29.9 Issues is same/not worsening but [...] of plan of care. [id number] Florecita Owens , [facility] [address] [address] 07/26/2023 10:45:43 07/26/2023 16:51:31 Pruritic rash 39709934 L28.2 Today we discussed swabs sent out and referral to both Derm/GI as still uncertain what is going on.No definitive answers with any of the testing done & little to no response therapies she has tried so far.Exam no worse but no better.Blu l update her on results & recommende d she call for appt with derm/has GI set up. Generalize d anxiety disorder 14891944 F41.1 MUCH anxiety.Pr eviously discussed trial of [...] counseling and review of plan of care. [id number] Patti Molina CNM [facility] [address] [address] 12/21/2023 09:57:49 12/21/2023 15:47:14 Amenorrhea 93635224 N91.2 trying to conceive will await results and plan us Trying to conceive 14192 9001 Z31.9 Health Concerns Section Related Observation LastModified by Organization Detai ls LastModified Time None Recorded Concern Status LastModified by Organization Details LastModified Time None Recorded Advance Directives Directive None Recorded Payers Encounter Date Sequence Insurance Name Policy Number Policy Peterson Covered Member ID Peterson Member ID Guarantor Name 07/06/2023 1 [place] [id number] Helio Vickers [id number] [facility] 07/08/2023 1 [place] [id number] Helio Vickers [id number] [facility] 07/13/2023 1 [place] [id number] Helio Vickers [id number] [facility] 07/26/2023 1 [place] [id number] Helio Vickers [id number] [facility] 12/21/2023 1 [place] [id number] Helio Vickers [id number] [facility] Notes Date Note Type Note Provider Name [...] of diarrhea or constipation Patti Molina CNM [address], [place], [address], [facility] 07/06/2023 17:15:25 07/08/2023 text/html Here today for biopsy for perianal itching/skin changes. Florecita Owens [facility] [address], [place], [address], [facility] 07/14/2023 10:37:23 07/26/2023 text/html Here today for f /u perianal swab culture. Florecita Owens [facility] [address], [place], [address], [facility] 07/26/2023 16:02:49 12/21/2023 text/html f/u faint positi ve on home test last week, reviewed labs slightly elevated testosterone. other labs wnltrying to conceive x 2 months, faint + UPT herecycle one week late [facility] [address], [place], [address], [facility] 12/21/2023 13:41:46 OBGyn Episode Ob Episode Information Episode Created Date Number of Fetuses Patient Bloodtype Patient rh Status Prepregnancy Weight lbs Domestic Partner Domestic Partner Phone Father Name Property Management Coordinator Status 07/29/19 21 1 CLOSED Fetus Data First Name Last Name Admitted to NICU Weight (g) Sex Living Outcome Pediatric Complications Fetus ID Race Codes Race Delivery Type 3600.15 9704 M Full Term [id number] Vaginal Delivery Jeremy Calculation Initial Jeremy Date [...] Domestic Partner Domestic Partner Phone Father Name Property Management Coordinator Status 10/29/19 21 1 O Positive 209 CLOSED Fetus Data First Name Last Name Admitted to NICU Weight (g) Sex Living Outcome Pediatric Complications Fetus ID Race Codes Race Delivery Type 3997.27 95 F true Full Term Club foot bilateral & meconium stool 96433 Vaginal Delivery Problems Problem Notes *04/13/21 Borderline high MEHRDAD . MEHRDAD 25.73cm. Rpt 1wkdeclines COVID vaccine/NIPT/SMA/CF Problem Name Start Date End Date Resolution Snomed Code Not e Vanishing twin syndrome 660660476 8w6d COVID-19 02/27/2021 793546099 ASA & ser ial growth Nausea MEDICATION 146838150 unisom clubfoot [id number] MFM Level II 01/21/21. - no further f/u, rec 32wk u/s for growth; Per Peds Ortho to f/u 2 weeks after delivery. Disorder of amniotic cavity AND/OR membrane 39375117 Possible sep aration of amnion and chorion [...] Date Ultra Sound Latest Days Gestation 0 10/28/2020 05/14/19 22 0 Pre-serenity Flowsheet Flowsheet [...] Weight in lbs Pre/Post Dialysis Refused Weight 221.112477309619 BP Diastolic BP Location Tested BP Systolic [...] Weight in lbs Pre/Post Dialysis Refused Weight 227.483202041579 BP Diastolic BP Location Tested BP Systolic BP Type 70 134 Fetus Heart Rate Present Fetus Movement A Yes Comments Flowsheet Date 01/06/2021 Chacon Score Blood Edema Fundus Height Fundus Units Glucose Ketones Leukocytes Nitrite Labor Signs Protein Cervic Dilation Cervic Effacement Cervic Station none Type Weight in lbs Pre/Post Dialysis Refused Weight 231.854711960028 BP Diastolic BP Location Tested BP Systolic [...] Weight in lbs Pre/Post Dialysis Refused Weight 236.725320919875 BP Diastolic BP Location Tested BP Systolic [...] Weight in lbs Pre/Post Dialysis Refused Weight 238.956076345719 BP Diastolic BP Location Tested BP Systolic [...] Weight in lbs Pre/Post Dialysis Refused Weight 241.87280002659 BP Diastolic BP Location Tested BP Systolic [...] Weight in lbs Pre/Post Dialysis Refused Weight 246.908281841606 BP Diastolic BP Location Tested BP Systolic [...] Weight in lbs Pre/Post Dialysis Refused Weight 247.617516294622 BP Diastolic BP Location Tested BP Systolic [...] Weight in lbs Pre/Post Dialysis Refused Weight 254.359393198234 BP Diastolic BP Location Tested BP Systolic [...] Weight in lbs Pre/Post Dialysis Refused Weight 251.53106925634 BP Diastolic BP Location Tested BP Systolic BP Type 74 123 Fetus Heart Rate Present Fetus Movement A Yes Comments Doing well. Increased heartb urn. Will start plain pepcid. MEHRDAD elevated again today. Will repeat 1 hour gtt and hgba1c today.Planning MIL for Tuesday night - between 8pm and 10pm once her son [...] Weight in lbs Pre/Post Dialysis Refused Weight 252.342976618727 BP Diastolic BP Location Tested BP Systolic BP Type 75 122 Fetus Heart Rate Present A 140 Fetus Movement A Yes Comments Planning MIL for 05/10. Carla g to do pitocin. Will recheck cervix next week to determine plan. Labor precautions discussed. Flowsheet Date 05/07/2021 Chacon Score Blood Edema Fundus Height Fundus Units Glucose Ketones Leukocytes Nitrite Labor Signs Protein Cervic Dilation Cervic Effacement Cervic Station neg none trace 1cm -2 Type Weight in lbs Pre/Post Dialysis Refused Weight 253.267834891966 BP Diastolic BP Location Tested BP Systolic [...] Estim ated Date of Delivery false Thalassemia (Czech, Estonian, Mediterranean, Or Background): MCV < 80 false Neural Tube Defect (Meningomyelocele, Spina Bifi da, Or Anencephaly) false Congenital Heart Defect false Down Syndrome false Abhijit-Sachs (eg, Orthodox, Cajun, Lithuanian-Ross) f alse Rcistin Disease false Sickle Cell Disease Or Trait () false Hemophilia Or Other Blood Disorders false Muscular Dystrophy false Cystic Fibrosis false [place]'s Chorea false Intellectual Disability/Autism false If Yes, [...] Induce d Regional-Ep idural 39.5 false Kina BentleyM Gbs+ Discharge Information Feeding Method Contraceptive Method Maternal HG B and HCT Levels
[2024-06-28] MEDS: LACTATED RINGERS 1,000 ML 30 ML IV CONT (13:00)
[2024-06-28] MEDS: ACETAMINOPHEN 500 MG TABLET 1000 MG PO (14:04)
[2024-06-28] MEDS: KETOROLAC 15 MG/ML VIAL (*BKC) IV PUSH (14:04)
--- NOTE | 2024-06-28 14:22 | P.PNAN_ITS ---
Anes - Initial Pre Proc Eval Procedure: Operation Date: 06/28/24 14:30 Proposed Procedures p Rectal Examination Under Anesthesia, Possible Fistulotomy, Sphincterotomy or Removal of Polyp - Charly Wolf MD Date/Time: 06/28/24 14:22 Surgeon: Charly Wolf MD Pre Op Diagnosis: rectal pain Patient Data Age: 29 Gender: F Height: 1.7 m Weight: 101.4 kg Last Vital Signs Temp 97.6 F 06/28/24 14:00 Pulse 85 06/28/24 14:00 BP 129/77 06/28/24 14:00 Pulse Ox 98 06/28/24 14:00 O2 Del Method Room Air 06/28/24 14:00 Allergies Allergy/AdvReac Type Severity Reaction Status Date / Time nickel Allergy Intermediate Rash Verified 06/28/24 13:59 Home Medications ?Medication ?Instructions ?Recorded ?Confirmed ?Type dextroamphetamine-amphetamine 10 10 mg PO QNOON #30 tabs 06/22/24 Rx mg tablet (Adderall) dextroamphetamine-amphetamine ER 20 mg PO DAILY #30 caps 06/22/24 Rx 20 mg 24hr capsule,extend release (Adderall XR) Patient hx anesthesia problems: none Family hx anesthesia problems: none Results Review: All pre-operative results and documents have been reviewed as part of the pre- operative evaluation. COUNT INCLUDES THE [facility] Past Medical History Medical History Right sided abdominal pain Anal fistula Perianal rash Anal fissure Rectal bleeding Anxiety ADD (attention deficit disorder) Family History Family History Father Diabetes mellitus Hypertension Depression Father Diabetes mellitus Grandparent Breast cancer Hypertension Heart problem Mother Depression Sibling Depression Thyroid disorder Social History Social History Years smoked: 8 Smoking status: Never smoker Tobacco type: cigarettes Smoking end date: 06/15/18 Alcohol intake: current Alcohol use details: rarely Substance use: never Substance use type: does not use Do You Feel Safe in your Home?: Yes Lack of Transportation: No Lack of Food: Never True Current Housing: I Have Housing Concerned About Future Housing: No Difficulty Paying Gas/Electric Bills: No Difficulty Paying for Meds: No Currently Unemployed: No Education: High School Diploma/GED Difficulty w/ Childcare or Family Care: No Living arrangements: with family Occupation/Education: other Additional occupation/education comments: housewife Gender identity (if verbalized by the patient): Female Sexual Orientation (if Verbalized by the Patient): Straight or Heterosexual Spiritual care concerns: No Agree to blood products: Yes Anes - Eval Final PreProcedure Day of Procedure 06/28/24 14:22 Patient weight: obese Lungs: normal air movement Airway: Mallampati scale class II Neurological: alert and oriented Last oral intake: >/= 8 hours ASA classification: II Emergent: no Anesthetic plan: proceed Anesthesia type and monitoring: general ETT and standard monitoring Results Review: All pre-operative results and documents have been reviewed as part of the pre- operative evaluation. ADHD meds. Informed Consent: The patient's anesthetic plan and its attendant risks and benefits were discussed with the patient/family/POA. Questions were solicited and answers provided to the satisfaction of the patient/family/POA.
--- NOTE | 2024-06-28 14:35 | WPDHPUPDATE1 ---
History and Physical Update Update Date/Time: 06/28/24 14:35 History and Physical has been reviewed, including an updated exam of the patient. There are NO changes in the patient's condition. Risks, benefits, and alternatives have been discussed and questions answered. Patient agrees to proceed with procedure.
[2024-06-28] MEDS: ceFAZolin 2 GM/D5W 50 ML 2 GM/50 ML BAG IVPB (14:44)
[2024-06-28] MEDS: BUPIVACAINE/EPINEPHRINE 0.5% 50 ML VIAL 40 ML INFILTRATE (15:08)
--- NOTE | 2024-06-28 15:48 | P.OP_ITS ---
Procedure Note - Detailed Date of Procedure 06/28/24 Pre-op Diagnosis rectal pain, rectal bleeding Post-op Diagnosis Other (Chronic anal fissure, internal hemorrhoid) Procedure Performed Lateral anal sphincterotomy, rubber-band ligation internal hemorrhoid Surgeon Charly Wolf MD Sales Representative [employer] [facility]CKENZIE Anesthesia General and Local (0.5% Marcaine with epinephrine) Indications Patient has at least a 2 year history of chronic anal pain with intermittent bleeding. She had been treated for an acute anal fissure with muscle relaxants and lidocaine. This lasted for a while but the rectal pain came back. She often notices some bleeding with bowel movements as well. The pain is worse with bowel movements. Rectal exam in the office was normal. She is taken to surgery now for rectal EUA as well as possible sphincterotomy, fistulotomy, hemorrhoidectomy or polypectomy. Findings She had a single small internal hemorrhoid in the anterior midline she also had a chronic anal fissure with sentinel tag in the anterior midline. There was evidence of some scarring and a small cleft just lateral to the internal sphincter. The internal sphincter muscle was in spasm with greatly increased tone. There was no sign of an abscess or fistula. There were no polyps. Description of Procedure Patient was taken to surgery and induced into general anesthesia. She was then placed in prone saniya-knife position. The buttocks were taped apart. Prep and drape of the perianal area was carried out. Digital rectal exam was performed with no significant findings. Sphincter tone was much increased from what I recalled in the office S. kelley Levi-Timothy anoscope was then introduced. Internal hemorrhoid was noted. We carefully reviewed an re-reviewed the entire circumference of the anal canal and distal rectum. There was a small anterior midline anal fissure noted with sentinel tag. During the procedure up to this point it had been evident that the internal sphincter tone was greatly increased. I infiltrated local anesthetic primarily on the left side of the perianal area although some was administered on the right side. The left side of the lower internal sphincter muscle was particularly infiltrated. I then exposed the lateral aspect of the inguinal canal. A small incision was made over the lower 3rd of the internal sphincter muscle. I was then able to dissect and pull up the internal sphincter over a curved clamp. Using the cautery, I divided the lower 3rd of the internal sphincter muscle without incident. There was no bleeding. I then exposed the internal hemorrhoid using a small Hill- Timothy anoscope. I was able to rubber-band ligate the internal hemorrhoid. No other anal canal pathology was noted. The rectum was dressed with Xeroform gauze, fluffs, tape and Promise panties. Patient was returned to a supine position. She was awakened and extubated. She transferred to recovery in good condition. Estimated Blood Loss -5 Drains No Packing No Pathology None sent Complications None Condition Stable Disposition PACU [facility] Billing Surgery - Charge Forward: Surgery Billing (Lateral internal sphincterotomy, rubber-band ligation internal hemorrhoid)
== END 2024-06-28 17:50 | disposition home or self-care (01) ==
PROVIDERS: PCP Nurse Practitioner Family; Visit Provider Surgery
PROC: (CPT 46221; principal; 2024-06-28 14:30)
DX: K62.89 Other specified diseases of anus and rectum (principal); K60.1 Chronic anal fissure; K64.8 Other hemorrhoids; G89.18 Other acute postprocedural pain; F41.9 Anxiety disorder, unspecified; F98.8 Other specified behavioral and emotional disorders with onset usually occurring in childhood and adolescence; E66.9 Obesity, unspecified; Z68.35 Body mass index [BMI] 35.0-35.9, adult; Z87.891 Personal history of nicotine dependence; Z87.19 Personal history of other diseases of the digestive system; Z80.3 Family history of malignant neoplasm of breast; Z82.49 Family history of ischemic heart disease and other diseases of the circulatory system
CPT/HCPCS: 46221; A9270; J0330; J0690; J1100; J1885; J2003; J2250; J2405; J2704; J3010; J7120